=== PATIENT | female | born 1940 | race Caucasian/White ===

== ENCOUNTER 2017-05-17 06:21 | Emergency (ER) | payer OTHER ==
[2017-05-17 06:29] VITALS: BMI 24.0
[2017-05-17] MEDS ORDERED: CATAPRES TAB 0.1 MG PO ONE (06:31)
[2017-05-17] MEDS ORDERED: CATAPRES TAB 0.1 MG ONE (06:31)
--- NOTE | 2017-05-17 06:40 | DR.GENAD ---
HPI - PCP Primary Care Physician: CLINTON - Complaint/Symptoms Chief Complaint Doctors Comments: History as stated. Chief Complaint:: WOKE WITH HEADACHE, N/V, DIZZY, BP ELEVATED. JUST FEEL WEAK. RECENTLY HAD ROOT CANAL. - Source History Provided: Patient, EMS - Mode of Arrival Mode of Arrival: EMS - Timing Onset of Chief Complaint: 05/17/17 PMH - PMH Past Medical History: Yes Past Medical History: Gout, Hypertension, Hypothyroidism Past Surgical History: Yes Surgical History: Hysterectomy - Family History History of Family Medical Conditions: Yes Family Medical History: Diabetes Mellitus, Cancer, [place], Coronary Artery Disease, Hypertension - Social History Does patient currently use any type of tobacco product: No Have you used tobacco products in the last 12 months: No Type of Tobacco Use: None Does any household member use tobacco: No Alcohol Use: None Do you use any recreational Drugs:: No Lives Where: Home - infectious screening Have you traveled outside the country in the last 6 months?: No Isolation: Standard ROS - Review of Systems Constitutional: negative: Diaphoresis Eyes: No Symptoms Reported, Other (pupils asymmetrical right >left) ENTM: No Symptoms Reported Respiratoy: No Symptoms Reported Cardiovascular: No Symptoms Reported Gastrointestinal/Abdominal: No Symptoms Reported Genitourinary: No Symptoms Reported Neurological: Dizziness, Problems Walking Musculoskeletal: Leg (decreased muscle strength) Integumentary: No Symptoms Reported, See HPI Hematologic/Lymphatic: No Symptoms Reported Endocrine: No Symptoms Reported Psychiatric: No Symptoms Reported All Other Systems: Reviewed and Negative PE - Vital Signs Vitals: Temperature 97.5 F Pulse Rate 93 Respiratory Rate 18 Blood Pressure [Left Arm] 137/65 Blood Pressure [Right Arm] 172/81 Blood Pressure 202/91 O2 Sat by Pulse Oximetry 97 - General Limitations: No Limitations General Appearance: Alert, In No Apparent Distress, Lethargic - Head Head Exam: Normal Inspection, Atraumatic - Eyes Eye exam: Normal Appearance, PERRL, EOMI - ENT ENT Exam: Normal Exam External Ear Exam: Normal External Inspection TM/Canal Exam: Bilateral Normal Nose Exam: Normal Nose Exam Mouth Exam: Normal Inspection. negative: Drooling, Trismus Throat Exam: Normal Inspection - Neck Neck Exam: Normal Inspection - Chest Chest Inspection: Normal Inspection, Symmetric Chest Wall Rise - Respiratory Respiratory Exam: Normal Lung Sounds Bilat Respiratory Exam: Bilateral Clear to Auscultation - Cardiovascular Cardiovascular Exam: Regular Rate, Normal Rhythm - Abdominal Exam Abdominal Exam: Normal Inspection, Normal Bowel Sounds Abdominal Tenderness: negative: RUQ, RLQ, LUQ, LLQ, Epigastrium, Suprapubic, Diffuse, Mild, Moderate, Severe, Other - Extremities Extremities Exam: Normal Inspection, Full ROM - Back Back Exam: Normal Inspection - Neurologic Neurological Exam: Alert, Oriented X3, CN II-XII Intact - Psychiatric Psychiatric Exam: Normal Affect, Normal Mood - Skin Skin Exam: Warm, Dry, Intact Course - Consultation Called: 07:20 (Dr Bernstein ER physician accepted in a ER to ER transfer) Call Returned: 07:30 (Dr Mcallister neurosurgeon accepted for evaluation and treatment) ROR - Labs Reviewed Result Diagrams: 05/17/17 06:49 05/17/17 06:49 Laboratory: WBC 5.6 X10^3/uL (3.6-10.0) 05/17/17 06:49 RBC 4.36 X10^6/uL (3.5-5.4) 05/17/17 06:49 Hgb 13.1 g/dL (12.0-16.0) 05/17/17 06:49 Hct 39.4 % (36.0-47.0) 05/17/17 06:49 MCV 90.4 fL (80.0-100.0) 05/17/17 06:49 MCH 30.0 pg (27.0-34.0) 05/17/17 06:49 MCHC 33.2 g/dL (33.0-35.0) 05/17/17 06:49 RDW 15.4 % (11.6-16.5) 05/17/17 06:49 Plt Count 175 X10^3/uL (150.0-450.0) 05/17/17 06:49 MPV 8.5 fL (7.4-11.0) 05/17/17 06:49 Neut % 67.1 % (42.0-75.0) 05/17/17 06:49 Lymph % 17.7 % (21.0-51.0) L 05/17/17 06:49 Holmes % 6.5 % (0.0-13.0) 05/17/17 06:49 Eos % 7.7 % (0.9-2.9) H 05/17/17 06:49 Baso % 1.0 % (0.2-1.0) 05/17/17 06:49 Neut # 3.7 x10^3/uL (2.2-4.8) 05/17/17 06:49 Lymph # 1.0 X10^3/uL (1.3-2.9) L 05/17/17 06:49 Holmes # 0.4 x10^3/uL (0.3-0.8) 05/17/17 06:49 Eos # 0.4 x10^3/uL (0.0-0.2) H 05/17/17 06:49 Baso # 0.1 X10^3/uL (0.0-0.1) 05/17/17 06:49 Absolute Nucleated RBC 0.0 /100WBC 05/17/17 06:49 INR Target Range - 05/17/17 06:49 INR 0.94 (0.8-1.3) 05/17/17 06:49 PTT 23.3 SECONDS (22.9-36.5) 05/17/17 06:49 PTT Comment - 05/17/17 06:49 - XRAY XRAY Interpreted by: Radiologist (CT Brain: There is an acute hemorrhage at the base of the right frontal lobe as well as blood in the right sylvian fissure and around the imp and idagonal cistern. There is moderate periventricular white matter low attenuation as before. The ventricles are prominent is size. There are small lacunar infarcts in the basal ganglia. Impression: Actue subarachnoid hemorrhage suggestive of rupture of right middle or anterior cerebral artery aneursym) - Diagnosis Discharge Problem: Subarachnoid hemorrhage - Discharge Plan Condition: Stable - Follow ups/Referrals Follow ups/Referrals: Shahid Martinez [Primary Care Provider] - 3 days - Instructions
--- NOTE | 2017-05-17 07:08 | CT ---
History: Headache and nausea and vomiting and hypertension Study : Multi conference planner CT head without contrast. Comparison: December 16, 2016 Findings: There is an acute hemorrhage at the base of the right frontal lobe as well as blood in the right sylvian fissure and around the imp and diagonal cistern. There is moderate periventricular wh ite matter low attenuation as before. The ventricles are prominent in size. There are small lacunar infarcts in the basal ganglia. Impression: Acute subarachnoid hemorrhage suggestive of ruptured right middle or anterior cerebral a rtery aneurysm Reported By:
--- NOTE | 2017-05-17 07:09 | RAD ---
History : Weakness and nausea and vomiting Study: Portable AP chest Comparison: December 17, 2016 Findings: There is limited inspiration with subsegmental atelectasis at the lung bases. The heart si ze is normal. The upper lobes are clear. There is no definite pleural effusion. Impression: Minimal subsegmental atelectasis at both lung bases Reported By:
[2017-05-17 07:10] LABS: BASOPHILS # (AUTO) 0.1 X10^3/uL (0.0-0.1); EOSINOPHILS # (AUTO) 0.4 x10^3/uL (0.0-0.2); EOSINOPHILS % (AUTO) 7.7 % (0.9-2.9); HEMATOCRIT 39.4 % (36.0-47.0); HEMOGLOBIN 13.1 g/dL (12.0-16.0); LYMPHOCYTES % (AUTO) 17.7 % (21.0-51.0); MEAN CORPUSCULAR HGB CONC 33.2 g/dL (33.0-35.0); MEAN CORPUSCULAR VOLUME 90.4 fL (80.0-100.0); MEAN PLATELET VOLUME 8.5 fL (7.4-11.0); MONOCYTES # (AUTO) 0.4 x10^3/uL (0.3-0.8); MONOCYTES % (AUTO) 6.5 % (0.0-13.0); NEUTROPHILS # (AUTO) 3.7 x10^3/uL (2.2-4.8); NEUTROPHILS % (AUTO) 67.1 % (42.0-75.0); PLATELET COUNT 175 X10^3/uL (150.0-450.0); RED BLOOD COUNT 4.36 X10^6/uL (3.5-5.4); RED CELL DISTRIBUTION WIDTH 15.4 % (11.6-16.5); WHITE BLOOD COUNT 5.6 X10^3/uL (3.6-10.0)
[2017-05-17 07:33] LABS: BLOOD UREA NITROGEN 18 mg/dL (7-18); CALCIUM 8.9 mg/dL (8.5-10.1); CARBON DIOXIDE 28.8 mmol/L (21-32); CHLORIDE 107 mmol/L (98-107); COR NA(FOR HYPERGLY) 145 mmol/L (136-145); GLUCOSE 123 mg/dL (65-99); SODIUM 144 mmol/L (136-145); TROPONIN I < 0.02 ng/mL (0-1.5); eGFR BLACK RACES > 60 (>60); eGFR NON BLACK RACES 51 (>60)
[2017-05-17 07:51] LABS: ALANINE AMINOTRANSFERASE 43 Units/L (12-78); ALBUMIN 3.6 g/dL (3.4-5.0); ALKALINE PHOSPHATASE 92 Units/L (46-116); ASPARTATE AMINO TRANSFERASE 41 Units/L (15-37); CKMB % 3.1 % (<4); CREATINE KINASE 465 Units/L (26-192); MAGNESIUM 1.5 mg/dL (1.7-2.9)
[2017-05-17 07:53] LABS: CREATINE KINASE MB 14.5 ng/mL (0-4.0)
[2017-05-17 07:55] VITALS: BP 138/68
[2017-05-17 08:00] LABS: BILIRUBIN,URINE NEGATIVE (NEGATIVE); BLOOD/HEMOGLOBIN,URINE 1+ (NEGATIVE); GLUCOSE, URINE NEGATIVE (NEGATIVE); KETONES,URINE NEGATIVE (NEGATIVE); LEUKOCYTE ESTERASE ,URINE 3+ (NEGATIVE); NITRITES,URINE NEGATIVE (NEGATIVE); PROTEIN,URINE 2+ (NEGATIVE); UROBILINOGEN,URINE NORMAL (NORMAL)
[2017-05-17 08:07] LABS: APPEARANCE,URINE CLEAR (CLEAR); BACTERIA,URINE TRACE /HPF (NEGATIVE); COLOR,URINE YELLOW (YELLOW); RBC,URINE 0-3 /HPF (NEGATIVE); SQUAMOUS EPITHELIAL CELL,UR NEGATIVE /HPF (NEGATIVE)
== END 2017-05-17 08:19 | disposition short-term general hospital (02) ==
LOC: ER 06:21
PROC: 0T9B70Z Drainage of Bladder with Drainage Device, Via Natural or Artificial Opening (ICD-10-PCS; principal; 2017-05-17)
DX: I60.8 Other nontraumatic subarachnoid hemorrhage (principal)
CPT/HCPCS: 36415; 51702; 70450; 71010; 80053; 81001; 82550; 82553; 83735; 84484; 85025; 85610; 85730; 87086; 93005; 96365; 99284; 99285; A4222

== ENCOUNTER 2017-06-22 15:22 | Inpatient (IN) | payer OTHER ==
[2017-06-22] MEDS: LEVAQUIN PREMIX IV 500 MG 500 MG/100 ML BAG IV SCH (17:04)
[2017-06-22] MEDS: NS 1000 ML 1,000 ML IV SCH (17:04)
[2017-06-22 17:22] LABS: BASOPHILS # (AUTO) 0.1 X10^3/uL (0.0-0.1); BASOPHILS % (AUTO) 0.7 % (0.2-1.0); EOSINOPHILS % (AUTO) 0.1 % (0.9-2.9); HEMATOCRIT 33.4 % (36.0-47.0); HEMOGLOBIN 10.7 g/dL (12.0-16.0); LYMPHOCYTES # (AUTO) 1.1 X10^3/uL (1.3-2.9); LYMPHOCYTES % (AUTO) 5.4 % (21.0-51.0); MEAN CORPUSCULAR HEMOGLOBIN 27.7 pg (27.0-34.0); MEAN CORPUSCULAR HGB CONC 31.9 g/dL (33.0-35.0); MEAN CORPUSCULAR VOLUME 86.6 fL (80.0-100.0); MEAN PLATELET VOLUME 8.1 fL (7.4-11.0); MONOCYTES # (AUTO) 1.7 x10^3/uL (0.3-0.8); MONOCYTES % (AUTO) 8.2 % (0.0-13.0); NEUTROPHILS # (AUTO) 17.8 x10^3/uL (2.2-4.8); NEUTROPHILS % (AUTO) 85.6 % (42.0-75.0); PLATELET COUNT 341 X10^3/uL (150.0-450.0); RED BLOOD COUNT 3.86 X10^6/uL (3.5-5.4); RED CELL DISTRIBUTION WIDTH 17.6 % (11.6-16.5)
[2017-06-22 17:34] LABS: WHITE BLOOD COUNT 20.8 X10^3/uL (3.6-10.0)
[2017-06-22 17:43] LABS: ALBUMIN 2.9 g/dL (3.4-5.0); CALCIUM 10.1 mg/dL (8.5-10.1); CARBON DIOXIDE 27.4 mmol/L (21-32); CREATININE 1.84 mg/dL (0.55-1.02); TOTAL PROTEIN 7.8 g/dL (6.4-8.2)
[2017-06-22 17:58] VITALS: BMI 20.9
--- NOTE | 2017-06-22 18:58 | CT ---
HISTORY: AMS Study: Noncontrast CT scan the brain Comparison: May 17, 2017 Technique: non contrasted CT images of the brain are reviewed in axial, coronal and sagittal planes. Dose reduction techniques utilized automatic exposure control. Findings: Since prior studies, patient has undergone coil embolization in the suprasellar region on the right. Subarachnoid bleeding has resolved. There is ventriculomegaly with periventricular areas of decreased attenuation density compatible with microangiopathic change. The ventricles appear to be slightly mo re prominent than on the prior study. A followup CT scan should be considered to evaluate for develop ment of hydrocephalus. A small ischemic infarct is present in the right frontal region near the conve xity. No evidence of repeat hemorrhage is seen. There is no shift of midline structures. The brainste m and cerebellum unremarkable. The bony calvarium is intact. IMPRESSION: Interval coil embolization in the right suprasellar region. Subarachnoid bleeding has resolved. Ventriculomegaly with periventricular areas of decreased attenuation density compatible with microang iopathic change. The ventricles appear to be slightly more prominent than on the prior study. A follo wup CT scan should be considered to evaluate for development of hydrocephalus. Small focus of ischemic infarction involving the periventricular white matter of the right frontal lo be near the convexity. This is best seen on series 4, image 26. Reported By:
[2017-06-23 05:47] LABS: ALBUMIN 2.6 g/dL (3.4-5.0); CALCIUM 9.6 mg/dL (8.5-10.1); CARBON DIOXIDE 25.2 mmol/L (21-32); COR CA(FOR HYPOALB) 10.7 mg/dL (8.5-10.1); CREATININE 1.7 mg/dL (0.55-1.02); TOTAL PROTEIN 7.4 g/dL (6.4-8.2)
[2017-06-23 05:58] LABS: BASOPHILS % (AUTO) 0.2 % (0.2-1.0); HEMATOCRIT 31.5 % (36.0-47.0); LYMPHOCYTES # (AUTO) 0.8 X10^3/uL (1.3-2.9); LYMPHOCYTES % (AUTO) 4.3 % (21.0-51.0); MEAN CORPUSCULAR HEMOGLOBIN 27.5 pg (27.0-34.0); MEAN CORPUSCULAR HGB CONC 31.8 g/dL (33.0-35.0); MEAN CORPUSCULAR VOLUME 86.5 fL (80.0-100.0); MEAN PLATELET VOLUME 8.2 fL (7.4-11.0); MONOCYTES # (AUTO) 1.2 x10^3/uL (0.3-0.8); MONOCYTES % (AUTO) 6.8 % (0.0-13.0); NEUTROPHILS # (AUTO) 15.8 x10^3/uL (2.2-4.8); NEUTROPHILS % (AUTO) 88.7 % (42.0-75.0); PLATELET COUNT 324 X10^3/uL (150.0-450.0); RED BLOOD COUNT 3.64 X10^6/uL (3.5-5.4); RED CELL DISTRIBUTION WIDTH 17.6 % (11.6-16.5); WHITE BLOOD COUNT 17.8 X10^3/uL (3.6-10.0)
[2017-06-23] MEDS: NS 1000 ML 1,000 ML IV SCH (06:29)
[2017-06-23] MEDS: LEVAQUIN PREMIX IV 500 MG 500 MG/100 ML BAG IV SCH (08:52)
[2017-06-23] MEDS: COLACE CAP 100 MG PO SCH ×2 (08:55→20:31)
[2017-06-23] MEDS: MILK OF MAGNESIA PO SCH ×2 (08:55→20:32)
--- NOTE | 2017-06-23 10:48 | DR.H&P ---
H&P - History & Physical for Day of: H&P Date: 06/22/17 - Chief Complaint Chief Complaint: ALTERED MENTAL STATUS, UTI, TACHYCARDIA - Allergies Allergies/Adverse Reactions: Allergies Allergy/AdvReac Type Severity Reaction Status Date / Time No Known Drug Allergies Allergy Unverified 05/17/17 07:39 - History of Present Illness History of Present Illness: IS A 77 YEAR OLD PATIENT OF OURS WHO IS A RESIDENT OF [facility]. SHE WAS A DIRECT ADMISSION FROM THE RETIREMENT. STAFF FROM RETIREMENT REPORTED THAT PATIENT HAS NOT RESPONDED VERBALLY IN 2 DAYS AND IS NOT EATING WELL. THEY REPORT THAT HER HEARTRATE HAS BEEN IN THE 120S THROUGHOUT THE DAY. PATIENT HAS A RECENT HISTORY OF SUBARACHNOID BLEED FOR WHICH SHE WAS TREATED FOR IN [place]. 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 CBC, CMP, AND URINALYSIS WERE OBTAINED ON AT THE RETIREMENT AND REPORTED WBC 12.4, HGB 10.5, HCT 32.6. BUN 35, CREATININE 1.38, GLUCOSE 142, CALCIUM 10.4, AST 40, ALBUMIN 3.0. URINALYSIS REPORTED URINE EBC 20-25, RBC 3-5, BACTERIA 1+, LEUKOCYTES 2+, PROTEIN 2+. URINE CULTURE GREW OUT KLEBSIELLA PNEUMONIAE AND ENTEROCOCCUS FAECALIS. BOTH SENSITIVE TO LEVAQUIN. WE ADMITTED PATIENT FOR FURTHER TREATMENT AND EVALUATION. WE PLAN TO OBTAIN CBC, CMP, AND BRAIN CT ON ADMISSION. WE WILL START PATIENT ON NS AT 30ML/HR, LEVAQUIN 500MG IV DAILY. WE ALSO PLAN TO RECHECK AM LABS AND FOLLOW UP WITH PATIENT IN AM. - Past Medical History Past Medical History: Coronary Artery Disease, Dyslipidemia, GERD, Gout, Hypertension, Hypothyroidism - Past Surgical History Surgical History: Hysterectomy - Family History Family Medical History: Diabetes Mellitus, Cancer, [place], Coronary Artery Disease, Hypertension - Social History Alcohol Use: None Drug Use: None - Medications Home Medications: Acetaminophen [TYLENOL SUPPOSITORY 650 MG *] 650 mg RECTAL Q4H PRN 06/22/17 [ History Confirmed 06/22/17] Aspirin [ASPIRIN 325 MG *] 325 mg PO DAILY 06/22/17 [History Confirmed 06/22/17] Ciprofloxacin HCl [CIPRO 500 MG TAB *] 500 mg PO BID 06/22/17 [History Confirmed 06/22/17] Mirtazapine [REMERON 15 MG *] 15 mg PO DAILY 06/22/17 [History Confirmed ] Nystatin Susp [NYSTATIN ORAL SUSP *] 5 ml PO QID 06/22/17 [History Confirmed 09/26] - Review of Systems Constitutional: See HPI, Weakness Eyes: No Symptoms Reported ENT: No Symptoms Reported Respiratory: No Symptoms Reported Cardiovascular: See HPI (TACHYCARDIA), Other Gastrointestinal: No Symptoms Reported Genitourinary: No Symptoms Reported Musculoskeletal: No Symptoms Reported Skin: No Symptoms Reported Neurological: See HPI, Weakness, Change in Speech - Physical Exam Vital Signs: Temperature 97.5 F Pulse Rate [Left Brachial] 130 Respiratory Rate 22 Blood Pressure [Left Arm] 114/58 Blood Pressure [Right Arm] 172/81 Blood Pressure 138/68 O2 Sat by Pulse Oximetry 100 Oriented: Unable to test Eyes: Normal Ear: Normal Nose: Normal Throat: Normal Respiratory: Clear Throughout Cardiovascular: Tachycardia : Normal Auscultation: Bowel Sounds: Normal Palpation: Normal Tenderness: Normal Skin: Normal Musculoskeletal: Normal, Right, Arm, Leg (PARALYSIS ) Psychiatric: Normal Mood Description: Calm Affect: Normal Speech Pattern: Unclear - Assessment/Plan (1) UTI (urinary tract infection) Qualifiers: Urinary tract infection type: site unspecified Hematuria presence: without hematuria Qualified Code(s): N39.0 - Urinary tract infection, site not specified Status: Acute Plan: LEVAQUIN 500MG IV DAILY, CONTINUE TO MONITOR (2) Altered mental status Qualifiers: Altered mental status type: disorientation Qualified Code(s): R41.0 - Disorientation, unspecified Status: Acute Plan: OBTAIN BRAIN CT, CONTINUE TO MONITOR (3) Tachycardia Status: Acute Plan: OBTAIN EKG, TELEMETRY, CONTINUE TO MONITOR
[2017-06-24] MEDS: NS 1000 ML 1,000 ML IV SCH ×3 (03:19→07:54)
[2017-06-24 06:18] LABS: BASOPHILS % (AUTO) 0.3 % (0.2-1.0); EOSINOPHILS % (AUTO) 0.2 % (0.9-2.9); HEMATOCRIT 29.7 % (36.0-47.0); HEMOGLOBIN 9.6 g/dL (12.0-16.0); LYMPHOCYTES # (AUTO) 0.7 X10^3/uL (1.3-2.9); MEAN CORPUSCULAR HEMOGLOBIN 27.7 pg (27.0-34.0); MEAN CORPUSCULAR HGB CONC 32.3 g/dL (33.0-35.0); MEAN CORPUSCULAR VOLUME 85.9 fL (80.0-100.0); MEAN PLATELET VOLUME 8.3 fL (7.4-11.0); MONOCYTES # (AUTO) 0.7 x10^3/uL (0.3-0.8); NEUTROPHILS # (AUTO) 10.3 x10^3/uL (2.2-4.8); NEUTROPHILS % (AUTO) 87.5 % (42.0-75.0); PLATELET COUNT 283 X10^3/uL (150.0-450.0); RED BLOOD COUNT 3.46 X10^6/uL (3.5-5.4); WHITE BLOOD COUNT 11.8 X10^3/uL (3.6-10.0)
[2017-06-24 07:09] LABS: ALBUMIN 2.6 g/dL (3.4-5.0); CALCIUM 9.2 mg/dL (8.5-10.1); CARBON DIOXIDE 25.8 mmol/L (21-32); COR CA(FOR HYPOALB) 10.3 mg/dL (8.5-10.1); CREATININE 1.4 mg/dL (0.55-1.02); TOTAL PROTEIN 7.1 g/dL (6.4-8.2)
[2017-06-24] MEDS: LEVAQUIN PREMIX IV 500 MG 500 MG/100 ML BAG IV SCH (09:12)
[2017-06-24 10:02] LABS: ALANINE AMINOTRANSFERASE 708 Units/L (12-78); ALKALINE PHOSPHATASE 220 Units/L (46-116); ASPARTATE AMINO TRANSFERASE 821 Units/L (15-37); CREATINE KINASE 28 Units/L (26-192)
[2017-06-24] MEDS ORDERED: TYLENOL SUPP 650 MG RECTAL PRN (10:11)
[2017-06-24] MEDS ORDERED: ALLOPURINOL 150 MG PO SCH (10:15)
[2017-06-24] MEDS ORDERED: PATIENT'S HOME MEDICATION (Cholecalciferol (Vitamin D3) [Vitamin D3] 5,000 UNIT) PO SCH (10:15)
[2017-06-24] MEDS ORDERED: PATIENT'S HOME MEDICATION (Cyanocobalamin (Vitamin B-12) [Vitamin B-12] 1,000 MCG) PO SCH (10:15)
[2017-06-24] MEDS: MAXZIDE 75/50 MG PO SCH (10:35)
[2017-06-24] MEDS: SYNTHROID 50 mcg TAB PO SCH (10:35)
[2017-06-24] MEDS: ZYLOPRIM PO SCH (10:35)
[2017-06-24] MEDS: REMERON PO SCH (10:35)
[2017-06-24] MEDS: ASPIRIN PO SCH (10:36)
--- NOTE | 2017-06-24 11:29 | PCM.PROG ---
Progress Note - Progress Note for Day of Date: 06/23/17 - Subjective Subjective: IS ALERT, LYING IN BED ON MORNING ROUNDS. PATIENT'S DAUGHTER AT BEDSIDE. PATIENT IS ORIENTED TO PERSON, BUT DOESN'T RECALL TIME OR PLACE. PATIENT DOES NOT VERBALIZED COMPLAINTS ON MORNING ROUNDS. SHE IS NOTED ON TELEMETRY, WITH MONITOR REPORTING HEARTRATE OF 133 BEATS/MIN. VITALS THIS AM ARE 97.5-137-24-99%-132/60. ABNORMAL LAB VALUES THIS MORNING INCLUDE: WBC 17.8, HGB 10.0, HCT 31.5, SODIUM 146, CHLORIDE 108, BUN 88, CREATININE 1.70, GLUCOSE 142, AST 89, ALT 91, ALK PHOS 130, ALBUMIN 2.6. A BRAIN CT WAS OBTAINED ON ADMISSION AND REPORTS THE FOLLOWING: Interval coil embolization in the right suprasellar region. Subarachnoid bleeding has resolved. Ventriculomegaly with periventricular areas of decreased attenuation density compatible with microangiopathic changed. The ventricles appear to be slightly more prominent than on the prior study. A follow up CT scan should be considered to evaluate for development of hydrocephalus. Small focus of ischemic infarction involving the periventricular white matter of the right frontal lobe near the convexity. WE WILL CONTINUE TO TREAT URINARY TRACT INFECTION WITH LEVAQUIN 500MG IV DAILY. WE WILL OBTAIN AN ECHO TODAY AND A SWALLOWING EVALUATION. WE PLAN TO RECHECK AM LABS AND BLOOD CULTURES. - Past Medical Family Social History Past Med/Fam/Surg Hx: No changes since H&P Allergies: Allergies No Known Drug Allergies Allergy (Unverified 05/17/17 07:39) - Review of Systems ROS: No change since H&P - Vital Signs and I&O's Vital Signs: Temperature 98.5 F Pulse Rate [Left Brachial] 130 Respiratory Rate 24 Blood Pressure [Left Arm] 129/64 Blood Pressure [Right Arm] 172/81 Blood Pressure 138/68 O2 Sat by Pulse Oximetry 99 Intake and Output: Intake & Output 06/21/17 06/22/17 06/23/17 06/24/17 11:59 11:59 11:59 11:59 Intake Total 385 883 Balance 385 883 - Physical Exam Oriented: Person Eyes: Normal Ear: Normal Nose: Normal Throat: Normal Respiratory: Normal Cardiovascular: Tachycardia : Normal Auscultation: Bowel Sounds: Normal Palpation: Normal Tenderness: Normal Skin: Normal Musculoskeletal: Normal, Right, Arm, Leg (PARALYSIS ) Psychiatric: Normal Mood Description: Calm Affect: Normal Speech Pattern: Clear, Appropriate - Laboratory and Diagnostics Result Diagrams: 06/24/17 05:55 06/24/17 05:55 Labs: Laboratory WBC 11.8 X10^3/uL (3.6-10.0) H 06/24/17 05:55 RBC 3.46 X10^6/uL (3.5-5.4) L 06/24/17 05:55 Hgb 9.6 g/dL (12.0-16.0) L 06/24/17 05:55 Hct 29.7 % (36.0-47.0) L 06/24/17 05:55 MCV 85.9 fL (80.0-100.0) 06/24/17 05:55 MCH 27.7 pg (27.0-34.0) 06/24/17 05:55 MCHC 32.3 g/dL (33.0-35.0) L 06/24/17 05:55 RDW 18.0 % (11.6-16.5) H 06/24/17 05:55 Plt Count 283 X10^3/uL (150.0-450.0) 06/24/17 05:55 MPV 8.3 fL (7.4-11.0) 06/24/17 05:55 Neut % 87.5 % (42.0-75.0) H 06/24/17 05:55 Lymph % 6.0 % (21.0-51.0) L 06/24/17 05:55 Sequoyah % 6.0 % (0.0-13.0) 06/24/17 05:55 Eos % 0.2 % (0.9-2.9) L 06/24/17 05:55 Baso % 0.3 % (0.2-1.0) 06/24/17 05:55 Neut # 10.3 x10^3/uL (2.2-4.8) H 06/24/17 05:55 Lymph # 0.7 X10^3/uL (1.3-2.9) L 06/24/17 05:55 Sequoyah # 0.7 x10^3/uL (0.3-0.8) 06/24/17 05:55 Eos # 0.0 x10^3/uL (0.0-0.2) 06/24/17 05:55 Baso # 0.0 X10^3/uL (0.0-0.1) 06/24/17 05:55 Absolute Nucleated RBC 0.4 /100WBC 06/24/17 05:55 Sodium 151 mmol/L (136-145) H* 06/24/17 05:55 Corrected Sodium 152 mmol/L (136-145) H 06/24/17 05:55 Potassium 3.8 mmol/L (3.5-5.1) 06/24/17 05:55 Chloride 113 mmol/L (98-107) H 06/24/17 05:55 Carbon Dioxide 25.8 mmol/L (21-32) 06/24/17 05:55 BUN 84 mg/dL (7-18) H 06/24/17 05:55 Creatinine 1.40 mg/dL (0.55-1.02) H 06/24/17 05:55 Est GFR (MDRD) Af Amer 47 (>60) L 06/24/17 05:55 Est GFR (MDRD) Non-Af 39 (>60) L 06/24/17 05:55 Glucose 122 mg/dL (65-99) H 06/24/17 05:55 Calcium 9.2 mg/dL (8.5-10.1) 06/24/17 05:55 Corrected Calcium 10.3 mg/dL (8.5-10.1) H 06/24/17 05:55 Total Bilirubin 0.40 mg/dL (0.2-1.0) 06/24/17 05:55 AST 821 Units/L (15-37) H 06/24/17 09:40 ALT 708 Units/L (12-78) H 06/24/17 09:40 Alkaline Phosphatase 220 Units/L (46-116) H 06/24/17 09:40 Creatine Kinase 28 Units/L (26-192) 06/24/17 09:40 Total Protein 7.1 g/dL (6.4-8.2) 06/24/17 05:55 Albumin 2.6 g/dL (3.4-5.0) L 06/24/17 05:55 Globulin 4.5 g/dL (2.5-4.5) 06/24/17 05:55 Albumin/Globulin Ratio 0.6 Ratio (1.1-2.1) L 06/24/17 05:55 - Plan (1) UTI (urinary tract infection) Status: Acute Qualifiers: Urinary tract infection type: site unspecified Hematuria presence: without hematuria Qualified Code(s): N39.0 - Urinary tract infection, site not specified Plan: LEVAQUIN 500MG IV DAILY, CONTINUE TO MONITOR (2) Altered mental status Status: Acute Qualifiers: Altered mental status type: disorientation Qualified Code(s): R41.0 - Disorientation, unspecified Plan: OBTAIN BRAIN CT, CONTINUE TO MONITOR (3) Tachycardia Status: Acute Plan: OBTAIN EKG, TELEMETRY, CONTINUE TO MONITOR (4) Swallowing difficulty Status: Acute Qualifiers: Dysphagia type: unspecified Qualified Code(s): R13.10 - Dysphagia, unspecified Plan: SWALLOWING STUDY, GI CONSULT, SUCTION NEEDED, CONTINUE TO MONITOR
--- NOTE | 2017-06-24 11:51 | PCM.PROG ---
Progress Note - Progress Note for Day of Date: 06/24/17 - Subjective Subjective: IS ALERT, LYING IN BED ON MORNING ROUNDS. PATIENT'S DAUGHTER AT BEDSIDE. PATIENT APPEARS MORE ALERT AND ORIENTED THAN YESTERDAY. TODAY, SHE IS AWARE OF LOCATION. PATIENT CONTINUES WITH DIFFICULTY SWALLOWING. SHE IS NOTED ON TELEMETRY, WITH MONITOR REPORTING HEARTRATE OF 127 BEATS/MIN. VITALS THIS AM ARE 98.6-126-25-99%-135/65. ABNORMAL LAB VALUES THIS MORNING INCLUDE: WBC 11.8, RBC 3.46, HGB 9.6, HCT 29.7, SODIUM 151, CHLORIDE 113, BUN 84 , CREATININE 1.40, GLUCOSE 122, AST ICREASED FROM 8- TO 1004, ALT INCREASED FROM 91 TO 749, ALK PHOS INCREASED FROM 130 TO 219, ALBUMIN 2.6. WE WILL CONSULT WITH DUE TO DIFFULTY SWALLOWING. WE PLAN TO RECHECK AM LABS AND BLOOD CULTURES. - Past Medical Family Social History Past Med/Fam/Surg Hx: No changes since H&P Allergies: Allergies No Known Drug Allergies Allergy (Unverified 05/17/17 07:39) - Review of Systems ROS: No change since H&P - Vital Signs and I&O's Vital Signs: Temperature 98.5 F Pulse Rate [Left Brachial] 130 Respiratory Rate 24 Blood Pressure [Left Arm] 129/64 Blood Pressure [Right Arm] 172/81 Blood Pressure 138/68 O2 Sat by Pulse Oximetry 99 Intake and Output: Intake & Output 06/21/17 06/22/17 06/23/17 06/24/17 11:59 11:59 11:59 11:59 Intake Total 385 883 Balance 385 883 - Physical Exam Oriented: Person Eyes: Normal Ear: Normal Nose: Normal Throat: Normal Respiratory: Normal Cardiovascular: Tachycardia : Normal Auscultation: Bowel Sounds: Normal Palpation: Normal Tenderness: Normal Skin: Normal Musculoskeletal: Normal, Right, Arm, Leg (PARALYSIS ) Psychiatric: Normal Mood Description: Calm Affect: Normal Speech Pattern: Clear, Appropriate - Laboratory and Diagnostics Result Diagrams: 06/24/17 05:55 06/24/17 05:55 Labs: Laboratory WBC 11.8 X10^3/uL (3.6-10.0) H 06/24/17 05:55 RBC 3.46 X10^6/uL (3.5-5.4) L 06/24/17 05:55 Hgb 9.6 g/dL (12.0-16.0) L 06/24/17 05:55 Hct 29.7 % (36.0-47.0) L 06/24/17 05:55 MCV 85.9 fL (80.0-100.0) 06/24/17 05:55 MCH 27.7 pg (27.0-34.0) 06/24/17 05:55 MCHC 32.3 g/dL (33.0-35.0) L 06/24/17 05:55 RDW 18.0 % (11.6-16.5) H 06/24/17 05:55 Plt Count 283 X10^3/uL (150.0-450.0) 06/24/17 05:55 MPV 8.3 fL (7.4-11.0) 06/24/17 05:55 Neut % 87.5 % (42.0-75.0) H 06/24/17 05:55 Lymph % 6.0 % (21.0-51.0) L 06/24/17 05:55 Emery % 6.0 % (0.0-13.0) 06/24/17 05:55 Eos % 0.2 % (0.9-2.9) L 06/24/17 05:55 Baso % 0.3 % (0.2-1.0) 06/24/17 05:55 Neut # 10.3 x10^3/uL (2.2-4.8) H 06/24/17 05:55 Lymph # 0.7 X10^3/uL (1.3-2.9) L 06/24/17 05:55 Emery # 0.7 x10^3/uL (0.3-0.8) 06/24/17 05:55 Eos # 0.0 x10^3/uL (0.0-0.2) 06/24/17 05:55 Baso # 0.0 X10^3/uL (0.0-0.1) 06/24/17 05:55 Absolute Nucleated RBC 0.4 /100WBC 06/24/17 05:55 Sodium 151 mmol/L (136-145) H* 06/24/17 05:55 Corrected Sodium 152 mmol/L (136-145) H 06/24/17 05:55 Potassium 3.8 mmol/L (3.5-5.1) 06/24/17 05:55 Chloride 113 mmol/L (98-107) H 06/24/17 05:55 Carbon Dioxide 25.8 mmol/L (21-32) 06/24/17 05:55 BUN 84 mg/dL (7-18) H 06/24/17 05:55 Creatinine 1.40 mg/dL (0.55-1.02) H 06/24/17 05:55 Est GFR (MDRD) Af Amer 47 (>60) L 06/24/17 05:55 Est GFR (MDRD) Non-Af 39 (>60) L 06/24/17 05:55 Glucose 122 mg/dL (65-99) H 06/24/17 05:55 Calcium 9.2 mg/dL (8.5-10.1) 06/24/17 05:55 Corrected Calcium 10.3 mg/dL (8.5-10.1) H 06/24/17 05:55 Total Bilirubin 0.40 mg/dL (0.2-1.0) 06/24/17 05:55 AST 821 Units/L (15-37) H 06/24/17 09:40 ALT 708 Units/L (12-78) H 06/24/17 09:40 Alkaline Phosphatase 220 Units/L (46-116) H 06/24/17 09:40 Creatine Kinase 28 Units/L (26-192) 06/24/17 09:40 Total Protein 7.1 g/dL (6.4-8.2) 06/24/17 05:55 Albumin 2.6 g/dL (3.4-5.0) L 06/24/17 05:55 Globulin 4.5 g/dL (2.5-4.5) 06/24/17 05:55 Albumin/Globulin Ratio 0.6 Ratio (1.1-2.1) L 06/24/17 05:55 - Plan (1) UTI (urinary tract infection) Status: Acute Qualifiers: Urinary tract infection type: site unspecified Hematuria presence: without hematuria Qualified Code(s): N39.0 - Urinary tract infection, site not specified Plan: LEVAQUIN 500MG IV DAILY, CONTINUE TO MONITOR (2) Altered mental status Status: Acute Qualifiers: Altered mental status type: disorientation Qualified Code(s): R41.0 - Disorientation, unspecified Plan: OBTAIN BRAIN CT, CONTINUE TO MONITOR (3) Tachycardia Status: Acute Plan: OBTAIN EKG, TELEMETRY, CONTINUE TO MONITOR (4) Swallowing difficulty Status: Acute Qualifiers: Dysphagia type: unspecified Qualified Code(s): R13.10 - Dysphagia, unspecified Plan: SWALLOWING STUDY, GI CONSULT, SUCTION NEEDED, CONTINUE TO MONITOR
[2017-06-24] MEDS ORDERED: PATIENT'S HOME MEDICATION (Simvastatin [Simvastatin] 40 MG) PO SCH (21:00)
[2017-06-24] MEDS: ZOCOR TAB 40 MG PO SCH (21:22)
[2017-06-24] MEDS: MILK OF MAGNESIA PO SCH (21:22)
[2017-06-24] MEDS: COLACE CAP 100 MG PO SCH (21:22)
[2017-06-24] MEDS: SINGULAIR TAB 10 MG PO SCH (21:22)
[2017-06-25] MEDS: NS 1000 ML 1,000 ML IV SCH ×2 (03:16→10:50)
[2017-06-25 06:19] LABS: BASOPHILS % (AUTO) 0.3 % (0.2-1.0); EOSINOPHILS # (AUTO) 0.2 x10^3/uL (0.0-0.2); EOSINOPHILS % (AUTO) 1.5 % (0.9-2.9); HEMATOCRIT 29.3 % (36.0-47.0); HEMOGLOBIN 9.3 g/dL (12.0-16.0); LYMPHOCYTES # (AUTO) 0.8 X10^3/uL (1.3-2.9); LYMPHOCYTES % (AUTO) 6.3 % (21.0-51.0); MEAN CORPUSCULAR HEMOGLOBIN 27.6 pg (27.0-34.0); MEAN CORPUSCULAR HGB CONC 31.8 g/dL (33.0-35.0); MEAN CORPUSCULAR VOLUME 86.7 fL (80.0-100.0); MEAN PLATELET VOLUME 8.5 fL (7.4-11.0); MONOCYTES # (AUTO) 0.9 x10^3/uL (0.3-0.8); NEUTROPHILS # (AUTO) 10.4 x10^3/uL (2.2-4.8); NEUTROPHILS % (AUTO) 84.9 % (42.0-75.0); PLATELET COUNT 268 X10^3/uL (150.0-450.0); RED BLOOD COUNT 3.37 X10^6/uL (3.5-5.4); RED CELL DISTRIBUTION WIDTH 17.6 % (11.6-16.5); WHITE BLOOD COUNT 12.2 X10^3/uL (3.6-10.0)
[2017-06-25 06:23] LABS: ALANINE AMINOTRANSFERASE 445 Units/L (12-78); ALBUMIN 2.6 g/dL (3.4-5.0); ALKALINE PHOSPHATASE 171 Units/L (46-116); ASPARTATE AMINO TRANSFERASE 266 Units/L (15-37); BLOOD UREA NITROGEN 63 mg/dL (7-18); CALCIUM 9.4 mg/dL (8.5-10.1); CARBON DIOXIDE 24.5 mmol/L (21-32); CHLORIDE 114 mmol/L (98-107); COR CA(FOR HYPOALB) 10.5 mg/dL (8.5-10.1); COR NA(FOR HYPERGLY) 151 mmol/L (136-145); CREATININE 1.08 mg/dL (0.55-1.02); TOTAL PROTEIN 6.5 g/dL (6.4-8.2); eGFR BLACK RACES > 60 (>60); eGFR NON BLACK RACES 52 (>60)
[2017-06-25 06:25] LABS: SODIUM 150 mmol/L (136-145)
[2017-06-25] MEDS: REMERON PO SCH (08:33)
[2017-06-25] MEDS: LEVAQUIN PREMIX IV 500 MG 500 MG/100 ML BAG IV SCH (08:33)
[2017-06-25] MEDS: ASPIRIN PO SCH (08:33)
[2017-06-25] MEDS: VITAMIN B-12 PO SCH (08:34)
[2017-06-25] MEDS: SYNTHROID 50 mcg TAB PO SCH (08:34)
[2017-06-25] MEDS: ZYLOPRIM PO SCH (08:34)
[2017-06-25] MEDS: MAXZIDE 75/50 MG PO SCH (08:34)
[2017-06-25] MEDS: VITAMIN D3 PO SCH (09:00)
[2017-06-25] MEDS ORDERED: PHARMACY CONSULT - TPN XX SCH (10:00)
[2017-06-25] MEDS ORDERED: D5W 1000 ML IV 1,000 ML IV SCH (10:00)
[2017-06-25] MEDS: D5W 1000 ML IV 1,000 ML IV SCH ×2 (10:30→20:13)
[2017-06-25] MEDS: PROCALAMINE 3 % 1,000 ML IV SCH (10:32)
[2017-06-25] MEDS: ALBUMIN HUMAN 25%- 100ML 100 ML IV SCH (10:36)
[2017-06-25] MEDS ORDERED: K-LYTE EFFERVESCENT PO PRN (10:59)
[2017-06-25] MEDS ORDERED: POTASSIUM CHLORIDE LIQ 20 MEQ UDC PO PRN (10:59)
[2017-06-25] MEDS: MILK OF MAGNESIA PO SCH (20:13)
[2017-06-25] MEDS: COLACE CAP 100 MG PO SCH (20:14)
[2017-06-25] MEDS: ZOCOR TAB 40 MG PO SCH (20:14)
[2017-06-25] MEDS: SINGULAIR TAB 10 MG PO SCH (20:14)
[2017-06-25] MEDS: K-DUR TAB 20 MEQ PO PRN (20:14)
--- NOTE | 2017-06-25 21:14 | PCM.PROG ---
Progress Note - Progress Note for Day of Date: 06/25/17 - Subjective Subjective: WAS ADMITTED FOR UROSEPSIS AND LETHARGY. SHE IS ALERT, SITTING IN HIGH FOWLERS POSITION IN BED ON MORNING ROUNDS. PATIENT'S DAUGHTER AT BEDSIDE. KEVINUGHER REPORTS THAT PATIENT HAS HAD SHAKING/TREMOR TO RIGHT ARM SINCE YESTERDAY. PATIENT'S DAUGHTER ALSO REPORTS THAT PATIENT HAS BEEN ABLE TO TAKE IN MORE FOOD SINCE THE PREVIOUS DAYS, BUT CONTINUES WITH SOME DIFFICULTY SWALLOWING. SHE IS NOTED ON TELEMETRY, WITH MONITOR REPORTING HEARTRATE OF 122 BEATS/MIN. VITALS THIS AM ARE 98.0-025-81-100%-141/64. LABS WERE OBTAINED. ABNORMAL LAB VALUES THIS MORNING INCLUDE: WBC INCREASED FROM 11.8 TO 12.2, RBC 3.37, HGB 9.3, HCT 29.3, SODIUM 150, CHLORIDE 114, POTASSIUM 3.2, BUN 63, CREATININE 1.08, GLUCOSE 130, AST DECREASED TO 266, ALT DECREASED TO 445, ALK PHOS 171, ALBUMIN 2.6. PRELIMINARY BLOOD CULTURES REPORT NO GROWTH. CONSULTED WITH PATIENT YESTERDAY. HE SUGGESTED TO CONTINUE HYDRATION. HE PLANS FOR EGD ON AN OUTPATIENT BASIS NEXT WEDNESDAY. WE WELL PATIENT AND FAMILY ARE IN AGREEMENT WITH PLAN. HE SUGGESTED A LIVER US. WE WILL OBTAIN IN THE AM. WE WILL ADD PEPCID 20MG IV BID, ALBUMIN 25% DAILY, START PERIPHERAL TPN AND REPLEAT POTASSIUM. WE PLAN TO RECHECK AM LABS AND CONTINUE TO MONITOR PATIENT. - Past Medical Family Social History Past Med/Fam/Surg Hx: No changes since H&P Allergies: Allergies No Known Drug Allergies Allergy (Unverified 05/17/17 07:39) - Review of Systems ROS: No change since H&P - Vital Signs and I&O's Vital Signs: Temperature 99.3 F Pulse Rate [Left Brachial] 95 Respiratory Rate 18 Blood Pressure [Left Arm] 141/63 Blood Pressure [Right Arm] 172/81 Blood Pressure 138/68 O2 Sat by Pulse Oximetry 100 Intake and Output: Intake & Output 06/23/17 06/24/17 06/25/17 06/26/17 11:59 11:59 11:59 11:59 Intake Total 385 228 895 5974 Balance 385 659 249 9084 - Physical Exam Oriented: Normal Eyes: Normal Ear: Normal Nose: Normal Throat: Normal Respiratory: Normal Cardiovascular: Tachycardia : Normal Auscultation: Bowel Sounds: Normal Palpation: Normal Tenderness: Normal Skin: Normal Musculoskeletal: Normal, Right, Arm, Leg (PARALYSIS ) Psychiatric: Normal Mood Description: Calm Affect: Normal Speech Pattern: Clear, Appropriate - Laboratory and Diagnostics Result Diagrams: 06/25/17 05:17 06/25/17 15:19 Labs: 06/23/17 11:50 Blood Blood Culture - Preliminary 06/23/17 11:35 Blood Blood Culture - Preliminary Laboratory WBC 12.2 X10^3/uL (3.6-10.0) H 06/25/17 05:17 RBC 3.37 X10^6/uL (3.5-5.4) L 06/25/17 05:17 Hgb 9.3 g/dL (12.0-16.0) L 06/25/17 05:17 Hct 29.3 % (36.0-47.0) L 06/25/17 05:17 MCV 86.7 fL (80.0-100.0) 06/25/17 05:17 MCH 27.6 pg (27.0-34.0) 06/25/17 05:17 MCHC 31.8 g/dL (33.0-35.0) L 06/25/17 05:17 RDW 17.6 % (11.6-16.5) H 06/25/17 05:17 Plt Count 268 X10^3/uL (150.0-450.0) 06/25/17 05:17 MPV 8.5 fL (7.4-11.0) 06/25/17 05:17 Neut % 84.9 % (42.0-75.0) H 06/25/17 05:17 Lymph % 6.3 % (21.0-51.0) L 06/25/17 05:17 Person % 7.0 % (0.0-13.0) 06/25/17 05:17 Eos % 1.5 % (0.9-2.9) 06/25/17 05:17 Baso % 0.3 % (0.2-1.0) 06/25/17 05:17 Neut # 10.4 x10^3/uL (2.2-4.8) H 06/25/17 05:17 Lymph # 0.8 X10^3/uL (1.3-2.9) L 06/25/17 05:17 Person # 0.9 x10^3/uL (0.3-0.8) H 06/25/17 05:17 Eos # 0.2 x10^3/uL (0.0-0.2) 06/25/17 05:17 Baso # 0.0 X10^3/uL (0.0-0.1) 06/25/17 05:17 Absolute Nucleated RBC 0.1 /100WBC 06/25/17 05:17 Sodium 150 mmol/L (136-145) H* 06/25/17 05:17 Corrected Sodium 151 mmol/L (136-145) H 06/25/17 05:17 Potassium 3.6 mmol/L (3.5-5.1) 06/25/17 15:19 Chloride 114 mmol/L (98-107) H 06/25/17 05:17 Carbon Dioxide 24.5 mmol/L (21-32) 06/25/17 05:17 BUN 63 mg/dL (7-18) H 06/25/17 05:17 Creatinine 1.08 mg/dL (0.55-1.02) H 06/25/17 05:17 Est GFR (MDRD) Af Amer > 60 (>60) 06/25/17 05:17 Est GFR (MDRD) Non-Af 52 (>60) L 06/25/17 05:17 Glucose 130 mg/dL (65-99) H 06/25/17 05:17 Calcium 9.4 mg/dL (8.5-10.1) 06/25/17 05:17 Corrected Calcium 10.5 mg/dL (8.5-10.1) H 06/25/17 05:17 Total Bilirubin 0.40 mg/dL (0.2-1.0) 06/25/17 05:17 AST 266 Units/L (15-37) H 06/25/17 05:17 ALT 445 Units/L (12-78) H 06/25/17 05:17 Alkaline Phosphatase 171 Units/L (46-116) H 06/25/17 05:17 Creatine Kinase 28 Units/L (26-192) 06/24/17 09:40 Total Protein 6.5 g/dL (6.4-8.2) 06/25/17 05:17 Albumin 2.6 g/dL (3.4-5.0) L 06/25/17 05:17 Globulin 3.9 g/dL (2.5-4.5) 06/25/17 05:17 Albumin/Globulin Ratio 0.7 Ratio (1.1-2.1) L 06/25/17 05:17 - Plan (1) UTI (urinary tract infection) Status: Acute Qualifiers: Urinary tract infection type: site unspecified Hematuria presence: without hematuria Qualified Code(s): N39.0 - Urinary tract infection, site not specified Plan: LEVAQUIN 500MG IV DAILY, CONTINUE TO MONITOR (2) Altered mental status Status: Acute Qualifiers: Altered mental status type: disorientation Qualified Code(s): R41.0 - Disorientation, unspecified Plan: TREAT INFECTION, CONTINUE TO MONITOR (3) Tachycardia Status: Acute Plan: HYDRATE, TELEMETRY, CONTINUE TO MONITOR (4) Swallowing difficulty Status: Acute Qualifiers: Dysphagia type: unspecified Qualified Code(s): R13.10 - Dysphagia, unspecified Plan: SWALLOWING STUDY, MECHANICAL SOFT DIET WITH NECTAR THICK LIQUIDS, SUCTION NEEDED, CONTINUE TO MONITOR (5) Hypoalbuminemia due to protein-calorie malnutrition Status: Acute Plan: PERIPHERAL TPN, ALBUMIN 25% DAILY, CONTINUE TO MONITOR (6) GERD (gastroesophageal reflux disease) Status: Acute Qualifiers: Esophagitis presence: esophagitis presence not specified Qualified Code(s) : K21.9 - Gastro-esophageal reflux disease without esophagitis Plan: PEPCID 20MG IV BID, CONTINUE TO MONITOR (7) Elevated liver enzymes Status: Acute Plan: LIVER US, CONTINUE TO MONITOR
[2017-06-25] MEDS: PEPCID 20 MG IV PREMIX* 20 MG/50 ML BAG IV SCH (21:39)
--- NOTE | 2017-06-25 22:41 | US ---
Ultrasound of the liver Indications: Elevated liver enzymes Technique: Grayscale with color Doppler imaging of the liver was performed. Findings: The liver is normal in echotexture and size measuring 14.0 x 6.8 x 8.0 centimeters. No intr ahepatic biliary dilatation is seen. The gallbladder contains a large amount of sludge with a small c luster of mobile stones. There is minimal gallbladder wall thickening at 4.8 millimeters. There is no adjacent fluid. The common bile duct measures 2.9 millimeters. There is no evidence of extrahepatic biliary dilatation. The right kidney is normal in echotexture and without hydronephrosis or mass. Conclusion: 1. Normal sonographic appearance of the liver. 2. Large amount of gallbladder sludge and stones with gallbladder wall thickening but no adjacent flu id. Nuclear medicine hepatobiliary scan may be helpful to evaluate for chronic cholecystitis. Reported By:
[2017-06-26] MEDS ORDERED: LANTISEPTIC ONE (03:50)
[2017-06-26] MEDS: D5W 1000 ML IV 1,000 ML IV SCH ×2 (05:23→18:41)
[2017-06-26] MEDS: LANTISEPTIC TOP PRN (05:27)
[2017-06-26 06:19] LABS: BASOPHILS # (AUTO) 0.1 X10^3/uL (0.0-0.1); BASOPHILS % (AUTO) 0.6 % (0.2-1.0); EOSINOPHILS # (AUTO) 0.3 x10^3/uL (0.0-0.2); HEMOGLOBIN 8.1 g/dL (12.0-16.0); LYMPHOCYTES # (AUTO) 0.7 X10^3/uL (1.3-2.9); MEAN CORPUSCULAR HEMOGLOBIN 27.6 pg (27.0-34.0); MEAN CORPUSCULAR HGB CONC 32.6 g/dL (33.0-35.0); MEAN CORPUSCULAR VOLUME 84.8 fL (80.0-100.0); MONOCYTES # (AUTO) 0.4 x10^3/uL (0.3-0.8); NEUTROPHILS # (AUTO) 9.6 x10^3/uL (2.2-4.8); NEUTROPHILS % (AUTO) 86.4 % (42.0-75.0); PLATELET COUNT 197 X10^3/uL (150.0-450.0); RED BLOOD COUNT 2.95 X10^6/uL (3.5-5.4); RED CELL DISTRIBUTION WIDTH 17.7 % (11.6-16.5); WHITE BLOOD COUNT 11.1 X10^3/uL (3.6-10.0)
[2017-06-26 06:30] LABS: ALANINE AMINOTRANSFERASE 237 Units/L (12-78); ALBUMIN 2.7 g/dL (3.4-5.0); ALKALINE PHOSPHATASE 122 Units/L (46-116); ASPARTATE AMINO TRANSFERASE 122 Units/L (15-37); BLOOD UREA NITROGEN 36 mg/dL (7-18); CALCIUM 8.6 mg/dL (8.5-10.1); CARBON DIOXIDE 24.5 mmol/L (21-32); CHLORIDE 103 mmol/L (98-107); COR CA(FOR HYPOALB) 9.6 mg/dL (8.5-10.1); COR NA(FOR HYPERGLY) 138 mmol/L (136-145); CREATININE 0.81 mg/dL (0.55-1.02); SODIUM 137 mmol/L (136-145); eGFR BLACK RACES > 60 (>60); eGFR NON BLACK RACES > 60 (>60)
[2017-06-26 06:37] LABS: BAND NEUTROPHILS % 9 % (0-10); PLATELET MORPHOLOGY COMMENT NORMAL (NORMAL)
[2017-06-26 06:38] LABS: HYPOCHROMASIA SLIGHT
[2017-06-26] MEDS: K-DUR TAB 20 MEQ PO PRN (07:01)
[2017-06-26] MEDS: ALBUMIN HUMAN 25%- 100ML 100 ML IV SCH (09:10)
[2017-06-26] MEDS: ASPIRIN PO SCH (10:30)
[2017-06-26] MEDS: SYNTHROID 50 mcg TAB PO SCH (10:56)
[2017-06-26] MEDS: MAXZIDE 75/50 MG PO SCH (10:56)
[2017-06-26] MEDS: REMERON PO SCH (10:56)
[2017-06-26] MEDS: LEVAQUIN PREMIX IV 500 MG 500 MG/100 ML BAG IV SCH (10:56)
[2017-06-26] MEDS: VITAMIN B-12 PO SCH (10:56)
[2017-06-26] MEDS: VITAMIN D3 PO SCH (10:57)
[2017-06-26] MEDS: ZYLOPRIM PO SCH (10:57)
[2017-06-26] MEDS: PEPCID 20 MG IV PREMIX* 20 MG/50 ML BAG IV SCH ×2 (10:57→20:40)
[2017-06-26] MEDS: K-RIDER 10 MEQ/NS 100 ML 10 MEQ/100 ML BAG IV PRN ×4 (14:20→21:40)
[2017-06-26] MEDS: PROTONIX INJ 40 MG VIAL IVP SCH ×2 (16:48→20:40)
[2017-06-26] MEDS: SINGULAIR TAB 10 MG PO SCH (20:40)
[2017-06-26] MEDS: ZOCOR TAB 40 MG PO SCH (20:41)
[2017-06-26] MEDS: COLACE CAP 100 MG PO SCH (20:41)
[2017-06-26] MEDS: MILK OF MAGNESIA PO SCH (20:41)
[2017-06-27 05:17] LABS: ALANINE AMINOTRANSFERASE 156 Units/L (12-78); ALBUMIN 2.9 g/dL (3.4-5.0); ALKALINE PHOSPHATASE 104 Units/L (46-116); ASPARTATE AMINO TRANSFERASE 69 Units/L (15-37); BLOOD UREA NITROGEN 22 mg/dL (7-18); CALCIUM 8.8 mg/dL (8.5-10.1); CARBON DIOXIDE 24.6 mmol/L (21-32); CHLORIDE 101 mmol/L (98-107); COR CA(FOR HYPOALB) 9.7 mg/dL (8.5-10.1); COR NA(FOR HYPERGLY) 136 mmol/L (136-145); CREATININE 0.75 mg/dL (0.55-1.02); SODIUM 135 mmol/L (136-145); TOTAL PROTEIN 5.9 g/dL (6.4-8.2); eGFR BLACK RACES > 60 (>60); eGFR NON BLACK RACES > 60 (>60)
[2017-06-27] MEDS: D5W 1000 ML IV 1,000 ML IV SCH ×4 (05:59→22:09)
[2017-06-27 06:15] LABS: BASOPHILS # (AUTO) 0.1 X10^3/uL (0.0-0.1); BASOPHILS % (AUTO) 0.5 % (0.2-1.0); EOSINOPHILS # (AUTO) 0.4 x10^3/uL (0.0-0.2); EOSINOPHILS % (AUTO) 2.7 % (0.9-2.9); HEMATOCRIT 27.8 % (36.0-47.0); LYMPHOCYTES # (AUTO) 0.9 X10^3/uL (1.3-2.9); LYMPHOCYTES % (AUTO) 6.8 % (21.0-51.0); MEAN CORPUSCULAR HEMOGLOBIN 27.1 pg (27.0-34.0); MEAN CORPUSCULAR HGB CONC 32.3 g/dL (33.0-35.0); MEAN CORPUSCULAR VOLUME 83.9 fL (80.0-100.0); MONOCYTES # (AUTO) 0.7 x10^3/uL (0.3-0.8); NEUTROPHILS # (AUTO) 11.8 x10^3/uL (2.2-4.8); PLATELET COUNT 226 X10^3/uL (150.0-450.0); RED BLOOD COUNT 3.31 X10^6/uL (3.5-5.4); RED CELL DISTRIBUTION WIDTH 17.7 % (11.6-16.5); WHITE BLOOD COUNT 13.9 X10^3/uL (3.6-10.0)
[2017-06-27 06:24] LABS: BAND NEUTROPHILS % 1 % (0-10)
[2017-06-27 06:25] LABS: HYPOCHROMASIA SLIGHT; PLATELET MORPHOLOGY COMMENT NORMAL (NORMAL)
[2017-06-27] MEDS: ALBUMIN HUMAN 25%- 100ML 100 ML IV SCH (09:37)
[2017-06-27] MEDS: PEPCID 20 MG IV PREMIX* 20 MG/50 ML BAG IV SCH ×2 (09:38→20:38)
[2017-06-27] MEDS: LEVAQUIN PREMIX IV 500 MG 500 MG/100 ML BAG IV SCH (09:39)
[2017-06-27] MEDS: VITAMIN B-12 PO SCH (09:39)
[2017-06-27] MEDS: ZYLOPRIM PO SCH (09:40)
[2017-06-27] MEDS: ASPIRIN PO SCH (09:40)
[2017-06-27] MEDS: SYNTHROID 50 mcg TAB PO SCH (09:41)
[2017-06-27] MEDS: MAXZIDE 75/50 MG PO SCH (09:42)
[2017-06-27] MEDS: VITAMIN D3 PO SCH (09:42)
[2017-06-27] MEDS: PROTONIX INJ 40 MG VIAL IVP SCH ×2 (09:43→20:40)
[2017-06-27] MEDS: REMERON PO SCH (09:43)
[2017-06-27] MEDS: FORTAZ or TAZICEF INJ 2 GM in NS 50 ML IV + SPIKE MINIBAG* 50 ML IV SCH ×3 (11:43→21:01)
[2017-06-27] MEDS: PROCALAMINE 3 % 1,000 ML IV SCH (14:36)
--- NOTE | 2017-06-27 16:05 | RAD ---
HISTORY: Altered mental status, cough Study: AP chest. Comparison: 05/17/2017 Findings: Lungs are hypo aerated with chronic interstitial changes and subsegmental atelectasis in the left chito g base. Mild prominence of the perihilar interstitium is noted. No focal airspace opacities are seen. Cardiac silhouette is normal in size. IMPRESSION: 1. Mild peribronchial interstitial thickening of central airways which can be seen in setting of bro nchitis 2. Left basilar subsegmental atelectasis. Reported By:
[2017-06-27] MEDS ORDERED: BUTT CREAM (COMPOUND) ONE (17:21)
[2017-06-27] MEDS: ZOCOR TAB 40 MG PO SCH (20:40)
[2017-06-27] MEDS: SINGULAIR TAB 10 MG PO SCH (20:40)
[2017-06-27] MEDS: MILK OF MAGNESIA PO SCH (20:40)
[2017-06-27] MEDS: COLACE CAP 100 MG PO SCH (20:40)
[2017-06-28 05:21] LABS: BASOPHILS # (AUTO) 0.1 X10^3/uL (0.0-0.1); BASOPHILS % (AUTO) 0.6 % (0.2-1.0); EOSINOPHILS # (AUTO) 0.3 x10^3/uL (0.0-0.2); EOSINOPHILS % (AUTO) 3.1 % (0.9-2.9); HEMATOCRIT 24.7 % (36.0-47.0); HEMOGLOBIN 8.1 g/dL (12.0-16.0); LYMPHOCYTES # (AUTO) 0.9 X10^3/uL (1.3-2.9); LYMPHOCYTES % (AUTO) 8.3 % (21.0-51.0); MEAN CORPUSCULAR HEMOGLOBIN 27.4 pg (27.0-34.0); MEAN CORPUSCULAR VOLUME 83.1 fL (80.0-100.0); MEAN PLATELET VOLUME 8.7 fL (7.4-11.0); MONOCYTES # (AUTO) 0.7 x10^3/uL (0.3-0.8); MONOCYTES % (AUTO) 6.1 % (0.0-13.0); NEUTROPHILS # (AUTO) 9.2 x10^3/uL (2.2-4.8); NEUTROPHILS % (AUTO) 81.9 % (42.0-75.0); PLATELET COUNT 211 X10^3/uL (150.0-450.0); RED BLOOD COUNT 2.97 X10^6/uL (3.5-5.4); RED CELL DISTRIBUTION WIDTH 18.1 % (11.6-16.5); WHITE BLOOD COUNT 11.2 X10^3/uL (3.6-10.0)
[2017-06-28] MEDS: FORTAZ or TAZICEF INJ 2 GM in NS 50 ML IV + SPIKE MINIBAG* 50 ML IV SCH ×3 (05:26→21:36)
[2017-06-28 05:50] LABS: ALANINE AMINOTRANSFERASE 103 Units/L (12-78); ALBUMIN 2.9 g/dL (3.4-5.0); ALKALINE PHOSPHATASE 80 Units/L (46-116); ASPARTATE AMINO TRANSFERASE 47 Units/L (15-37); BLOOD UREA NITROGEN 21 mg/dL (7-18); CALCIUM 8.8 mg/dL (8.5-10.1); CARBON DIOXIDE 26.1 mmol/L (21-32); CHLORIDE 101 mmol/L (98-107); COR CA(FOR HYPOALB) 9.7 mg/dL (8.5-10.1); CREATININE 0.71 mg/dL (0.55-1.02); SODIUM 136 mmol/L (136-145); TOTAL PROTEIN 5.9 g/dL (6.4-8.2); eGFR BLACK RACES > 60 (>60); eGFR NON BLACK RACES > 60 (>60)
[2017-06-28] MEDS: K-RIDER 10 MEQ/NS 100 ML 10 MEQ/100 ML BAG IV PRN ×3 (06:02→13:27)
[2017-06-28 06:04] LABS: BAND NEUTROPHILS % 4 % (0-10); HYPOCHROMASIA 1+; PLATELET MORPHOLOGY COMMENT NORMAL (NORMAL)
[2017-06-28] MEDS: ALBUMIN HUMAN 25%- 100ML 100 ML IV SCH (09:16)
[2017-06-28] MEDS: LEVAQUIN PREMIX IV 500 MG 500 MG/100 ML BAG IV SCH (09:18)
[2017-06-28] MEDS: MAXZIDE 75/50 MG PO SCH (09:18)
[2017-06-28] MEDS: ASPIRIN PO SCH (09:18)
[2017-06-28] MEDS: PEPCID 20 MG IV PREMIX* 20 MG/50 ML BAG IV SCH ×3 (09:18→21:56)
[2017-06-28] MEDS: PROTONIX INJ 40 MG VIAL IVP SCH ×2 (09:18→21:35)
[2017-06-28] MEDS: VITAMIN D3 PO SCH (09:19)
[2017-06-28] MEDS: SYNTHROID 50 mcg TAB PO SCH (09:19)
[2017-06-28] MEDS: ZYLOPRIM PO SCH (09:19)
[2017-06-28] MEDS: VITAMIN B-12 PO SCH (09:19)
[2017-06-28] MEDS: REMERON PO SCH (09:19)
[2017-06-28] MEDS ORDERED: TYLENOL 325 MG TAB PO PRN (09:57)
[2017-06-28] MEDS ORDERED: BENADRYL INJ 50 MG VIAL IVP PRN (09:57)
[2017-06-28] MEDS ORDERED: NS 500 ML IV 500 ML IV ONE (09:57)
[2017-06-28] MEDS ORDERED: LASIX IVP ONE ×2 (09:58→22:00)
[2017-06-28] MEDS ORDERED: ASPIRIN PO SCH (10:02)
--- NOTE | 2017-06-28 16:27 | RAD ---
KUB Indication: IVC filter placement Comparison: None available Findings: An IVC filter is noted the superior tip of the filter appears to be at the level of the superior endp late of L2. The IVC filter projects in expected orientation There is a normal bowel gas pattern. No free air or pneumatosis. No pathological soft tissue mass or calcification can be observed. The bony structures are grossly intact. IMPRESSION: No evidence for acute abdominal or pelvic pathology identified. IVC filter projects expected orientation with the superior margin of the filter at the level of super ior endplate of L2. Reported By:
[2017-06-28] MEDS: D5W 1000 ML IV 1,000 ML IV SCH ×2 (16:45)
[2017-06-28] MEDS: PROCALAMINE 3 % 1,000 ML IV SCH (16:48)
[2017-06-28] MEDS ORDERED: NS 100 ML IV + SPIKE MINIBAG* 100 ML IV ONE (21:24)
[2017-06-28] MEDS ORDERED: FORTAZ or TAZICEF INJ ONE (21:24)
[2017-06-28] MEDS: SINGULAIR TAB 10 MG PO SCH ×2 (21:37→21:58)
[2017-06-28] MEDS: MILK OF MAGNESIA PO SCH ×2 (21:37→21:57)
[2017-06-28] MEDS: COLACE CAP 100 MG PO SCH ×2 (21:37→21:58)
[2017-06-28] MEDS: ZOCOR TAB 40 MG PO SCH ×2 (21:37→21:58)
--- NOTE | 2017-06-28 21:41 | PCM.PROG ---
Progress Note - Progress Note for Day of Date: 06/26/17 - Subjective Subjective: WAS ADMITTED FOR UROSEPSIS AND ALTERED MENTAL STATUS. SHE IS ALERT AND ORIENTED, LYING IN BED ON MORNING ROUNDS. PATIENTS DAUGHTER IS AT BEDSIDE. PATIENT CONTINUES WITH COMPLAINTS OF DIFFICULTY SWALLOWING. SHE VOICES COMPLAINTS OF LOWER ABDOMINAL PAIN THIS MORNING. STAFF REPORTS THAT PATIENT HAS HAD FREQUENT URINATION. SHE IS NOTED ON TELEMETRY WITH HEARTRATE 95 BPM THIS MORNING, SINUS RHYTHM. PATIENT HAS PREVIOUSLY BEEN TACHYCARDIC WITH HR 120-130. VITALS ON MORNING ROUNDS ARE 97.4-95-20-99%-127/58. LABS WERE OBTAINED. ABNORMAL LAB VALUES INCLUDE THE FOLLOWING: WBC 11.1, RBC 3.31, HGB 9.0 , HCT 27.8, POTASSIUM 3.1, BUN 36, GLUCOSE 129, AST 122, ALT 237, ALK PHOS 122, TOTAL PROTEIN 6.0, ALBUMIN 2.7. A LIVER US WAS OBTAINED. IT REPORTED LARGE AMOUNT OF GALLBLADDER SLUDGE AND STONES WITH GALLBLADDER WALL THICKENING, NORMAL APPEARANCE OF THE LIVER. WE WILL START PROTONIX 40MG PO BID, OTHERWISE, WE WILL CONTINUE WITH CURRENT PLAN OF CARE. WE PLAN TO RECHECK CBC, CMP, AND CHEST XRAY IN THE MORNING. WE WILL CONTINUE TO MONITOR PATIENT. - Past Medical Family Social History Past Med/Fam/Surg Hx: No changes since H&P Allergies: Allergies No Known Drug Allergies Allergy (Unverified 05/17/17 07:39) - Review of Systems ROS: No change since H&P - Vital Signs and I&O's Vital Signs: Temperature 98.0 F Pulse Rate [Left Brachial] 92 Respiratory Rate 20 Blood Pressure [Left Arm] 125/92 Blood Pressure [Right Arm] 117/82 Blood Pressure 138/68 O2 Sat by Pulse Oximetry 100 Intake and Output: Intake & Output 06/26/17 06/27/17 06/28/17 06/29/17 11:59 11:59 11:59 11:59 Intake Total 501 4461 4850 1701 Output Total 1 Balance 6118 4448 1790 1705 - Physical Exam Oriented: Normal Eyes: Normal Ear: Normal Nose: Normal Throat: Normal Respiratory: Normal Cardiovascular: Normal : Normal Auscultation: Bowel Sounds: Normal Palpation: Normal Tenderness: Normal Skin: Normal Musculoskeletal: Normal, Right, Arm, Leg (PARALYSIS ) Psychiatric: Normal Mood Description: Calm Affect: Normal Speech Pattern: Delayed - Laboratory and Diagnostics Result Diagrams: 06/28/17 03:00 06/28/17 03:00 Labs: 06/23/17 11:50 Blood Blood Culture - Final 06/23/17 11:35 Blood Blood Culture - Final Laboratory WBC 11.2 X10^3/uL (3.6-10.0) H 06/28/17 03:00 RBC 2.97 X10^6/uL (3.5-5.4) L 06/28/17 03:00 Hgb 8.1 g/dL (12.0-16.0) L 06/28/17 03:00 Hct 24.7 % (36.0-47.0) L 06/28/17 03:00 MCV 83.1 fL (80.0-100.0) 06/28/17 03:00 MCH 27.4 pg (27.0-34.0) 06/28/17 03:00 MCHC 33.0 g/dL (33.0-35.0) 06/28/17 03:00 RDW 18.1 % (11.6-16.5) H 06/28/17 03:00 Plt Count 211 X10^3/uL (150.0-450.0) 06/28/17 03:00 Plt Count Comment Adequate (ADEQUATE) 06/28/17 03:00 MPV 8.7 fL (7.4-11.0) 06/28/17 03:00 Neut % 81.9 % (42.0-75.0) H 06/28/17 03:00 Lymph % 8.3 % (21.0-51.0) L 06/28/17 03:00 [place] % 6.1 % (0.0-13.0) 06/28/17 03:00 Eos % 3.1 % (0.9-2.9) H 06/28/17 03:00 Baso % 0.6 % (0.2-1.0) 06/28/17 03:00 Neut # 9.2 x10^3/uL (2.2-4.8) H 06/28/17 03:00 Lymph # 0.9 X10^3/uL (1.3-2.9) L 06/28/17 03:00 [place] # 0.7 x10^3/uL (0.3-0.8) 06/28/17 03:00 Eos # 0.3 x10^3/uL (0.0-0.2) H 06/28/17 03:00 Baso # 0.1 X10^3/uL (0.0-0.1) 06/28/17 03:00 Absolute Nucleated RBC 0.1 /100WBC 06/28/17 03:00 Total Counted 100 06/28/17 03:00 Neutrophils % (Manual) 76 % (39-76) 06/28/17 03:00 Band Neutrophils % 4 % (0-10) 06/28/17 03:00 Lymphocytes % (Manual) 13 % (13-43) 06/28/17 03:00 Monocytes % (Manual) 4 % (4-9) 06/28/17 03:00 Eosinophils % (Manual) 3 % (0-6) 06/28/17 03:00 Plt Morphology Comment Normal (NORMAL) 06/28/17 03:00 RBC Morphology Abnormal (NORMAL) A 06/28/17 03:00 Hypochromasia 1+ A 06/28/17 03:00 Sodium 136 mmol/L (136-145) 06/28/17 03:00 Corrected Sodium TNP 06/28/17 03:00 Potassium 3.1 mmol/L (3.5-5.1) L 06/28/17 03:00 Chloride 101 mmol/L (98-107) 06/28/17 03:00 Carbon Dioxide 26.1 mmol/L (21-32) 06/28/17 03:00 BUN 21 mg/dL (7-18) H 06/28/17 03:00 Creatinine 0.71 mg/dL (0.55-1.02) 06/28/17 03:00 Est GFR (MDRD) Af Amer > 60 (>60) 06/28/17 03:00 Est GFR (MDRD) Non-Af > 60 (>60) 06/28/17 03:00 Glucose 109 mg/dL (65-99) H 06/28/17 03:00 Calcium 8.8 mg/dL (8.5-10.1) 06/28/17 03:00 Corrected Calcium 9.7 mg/dL (8.5-10.1) 06/28/17 03:00 Total Bilirubin 0.40 mg/dL (0.2-1.0) 06/28/17 03:00 AST 47 Units/L (15-37) H 06/28/17 03:00 ALT 103 Units/L (12-78) H 06/28/17 03:00 Alkaline Phosphatase 80 Units/L (46-116) 06/28/17 03:00 Creatine Kinase 28 Units/L (26-192) 06/24/17 09:40 Total Protein 5.9 g/dL (6.4-8.2) L 06/28/17 03:00 Albumin 2.9 g/dL (3.4-5.0) L 06/28/17 03:00 Globulin 3.0 g/dL (2.5-4.5) 06/28/17 03:00 Albumin/Globulin Ratio 1.0 Ratio (1.1-2.1) L 06/28/17 03:00 Blood Type A POSITIVE 06/28/17 10:30 Antibody Screen Negative 06/28/17 10:30 Crossmatch See Detail 06/28/17 10:30 - Plan (1) UTI (urinary tract infection) Status: Acute Qualifiers: Urinary tract infection type: site unspecified Hematuria presence: without hematuria Qualified Code(s): N39.0 - Urinary tract infection, site not specified Plan: LEVAQUIN 500MG IV DAILY, CONTINUE TO MONITOR (2) Altered mental status Status: Acute Qualifiers: Altered mental status type: disorientation Qualified Code(s): R41.0 - Disorientation, unspecified Plan: TREAT INFECTION, CONTINUE TO MONITOR (3) Tachycardia Status: Acute Plan: HYDRATE, TELEMETRY, CONTINUE TO MONITOR (4) Swallowing difficulty Status: Acute Qualifiers: Dysphagia type: unspecified Qualified Code(s): R13.10 - Dysphagia, unspecified Plan: SWALLOWING STUDY, MECHANICAL SOFT DIET WITH NECTAR THICK LIQUIDS, SUCTION NEEDED, CONTINUE TO MONITOR (5) Hypoalbuminemia due to protein-calorie malnutrition Status: Acute Plan: PERIPHERAL TPN, ALBUMIN 25% DAILY, CONTINUE TO MONITOR (6) GERD (gastroesophageal reflux disease) Status: Acute Qualifiers: Esophagitis presence: esophagitis presence not specified Qualified Code(s) : K21.9 - Gastro-esophageal reflux disease without esophagitis Plan: PEPCID 20MG IV BID, CONTINUE TO MONITOR (7) Elevated liver enzymes Status: Acute Plan: LIVER US, CONTINUE TO MONITOR
--- NOTE | 2017-06-28 21:42 | PCM.PROG ---
Progress Note - Progress Note for Day of Date: 06/27/17 - Subjective Subjective: WAS ADMITTED FOR UROSEPSIS AND ALTERED MENTAL STATUS. SHE IS ALERT AND ORIENTED, LYING IN BED ON MORNING ROUNDS. PATIENTS DAUGHTER IS AT BEDSIDE. SHE CONTINUES WITH COMPLAINTS OF SUPRAPUBIC PAIN. ON EXAMINATION , LUNGS ARE NOTED CLEAR TO AUSCULTATION, BILATERALLY. ABDOMEN IS SOFT, FLAT, AND TENDER. BOWEL SOUNDS ARE NOTED NORMAL IN ALL QUADRANTS. SHE IS NOTED ON TELEMETRY WITH HEARTRATE 99 BPM THIS MORNING, SINUS RHYTHM. VITALS ON MORNING ROUNDS ARE 99.1-99-28-100%-116/56. LABS WERE OBTAINED. ABNORMAL LAB VALUES INCLUDE THE FOLLOWING: WBC 13.9 , RBC 3.31, HGB 9.0, HCT 27.8, SODIUM 135, BUN 22, CREATININE 122, AST 69, ALT 156, TOTAL PROTEIN 5.9, ALBUMIN 2.9. A CHEST XRAY WAS OBTAINED. IT REPORTED MILD PERIBRONCHIAL INTERSTITIAL THICKENING OF CENTRAL AIRWAYS WHICH CAN BE SEEN IN SETTING OF BRONCHITIS, LEFT BASILAR SUBSEGMENTAL ATELECTASIS. WE WILL CONTINUE WITH CURRENT PLAN OF CARE. WE PLAN TO RECHECK CBC, CMP, AND CHEST XRAY IN THE MORNING. WE WILL CONTINUE TO MONITOR PATIENT. WE WILL START FORTAZ 1 GM IV Q8H FOR INCREASING WBC, REPEAT BLOOD CULTURES, AND CONSULT FOR PEG TUBE AND PORT A CATH. - Past Medical Family Social History Past Med/Fam/Surg Hx: No changes since H&P Allergies: Allergies No Known Drug Allergies Allergy (Unverified 05/17/17 07:39) - Review of Systems ROS: No change since H&P - Vital Signs and I&O's Vital Signs: Temperature 98.0 F Pulse Rate [Left Brachial] 92 Respiratory Rate 20 Blood Pressure [Left Arm] 125/92 Blood Pressure [Right Arm] 117/82 Blood Pressure 138/68 O2 Sat by Pulse Oximetry 100 Intake and Output: Intake & Output 06/26/17 06/27/17 06/28/17 06/29/17 11:59 11:59 11:59 11:59 Intake Total 5012 4441 4038 1705 Output Total 1 Balance 5012 4441 4033 1705 - Physical Exam Oriented: Normal Eyes: Normal Ear: Normal Nose: Normal Throat: Normal Respiratory: Normal Cardiovascular: Normal : Normal Auscultation: Bowel Sounds: Normal Palpation: Normal Tenderness: Normal Skin: Normal Musculoskeletal: Normal, Right, Arm, Leg (PARALYSIS ) Psychiatric: Normal Mood Description: Calm Affect: Normal Speech Pattern: Clear - Laboratory and Diagnostics Result Diagrams: 06/28/17 03:00 06/28/17 03:00 Labs: 06/23/17 11:50 Blood Blood Culture - Final 06/23/17 11:35 Blood Blood Culture - Final Laboratory WBC 11.2 X10^3/uL (3.6-10.0) H 06/28/17 03:00 RBC 2.97 X10^6/uL (3.5-5.4) L 06/28/17 03:00 Hgb 8.1 g/dL (12.0-16.0) L 06/28/17 03:00 Hct 24.7 % (36.0-47.0) L 06/28/17 03:00 MCV 83.1 fL (80.0-100.0) 06/28/17 03:00 MCH 27.4 pg (27.0-34.0) 06/28/17 03:00 MCHC 33.0 g/dL (33.0-35.0) 06/28/17 03:00 RDW 18.1 % (11.6-16.5) H 06/28/17 03:00 Plt Count 211 X10^3/uL (150.0-450.0) 06/28/17 03:00 Plt Count Comment Adequate (ADEQUATE) 06/28/17 03:00 MPV 8.7 fL (7.4-11.0) 06/28/17 03:00 Neut % 81.9 % (42.0-75.0) H 06/28/17 03:00 Lymph % 8.3 % (21.0-51.0) L 06/28/17 03:00 [place] % 6.1 % (0.0-13.0) 06/28/17 03:00 Eos % 3.1 % (0.9-2.9) H 06/28/17 03:00 Baso % 0.6 % (0.2-1.0) 06/28/17 03:00 Neut # 9.2 x10^3/uL (2.2-4.8) H 06/28/17 03:00 Lymph # 0.9 X10^3/uL (1.3-2.9) L 06/28/17 03:00 [place] # 0.7 x10^3/uL (0.3-0.8) 06/28/17 03:00 Eos # 0.3 x10^3/uL (0.0-0.2) H 06/28/17 03:00 Baso # 0.1 X10^3/uL (0.0-0.1) 06/28/17 03:00 Absolute Nucleated RBC 0.1 /100WBC 06/28/17 03:00 Total Counted 100 06/28/17 03:00 Neutrophils % (Manual) 76 % (39-76) 06/28/17 03:00 Band Neutrophils % 4 % (0-10) 06/28/17 03:00 Lymphocytes % (Manual) 13 % (13-43) 06/28/17 03:00 Monocytes % (Manual) 4 % (4-9) 06/28/17 03:00 Eosinophils % (Manual) 3 % (0-6) 06/28/17 03:00 Plt Morphology Comment Normal (NORMAL) 06/28/17 03:00 RBC Morphology Abnormal (NORMAL) A 06/28/17 03:00 Hypochromasia 1+ A 06/28/17 03:00 Sodium 136 mmol/L (136-145) 06/28/17 03:00 Corrected Sodium TNP 06/28/17 03:00 Potassium 3.1 mmol/L (3.5-5.1) L 06/28/17 03:00 Chloride 101 mmol/L (98-107) 06/28/17 03:00 Carbon Dioxide 26.1 mmol/L (21-32) 06/28/17 03:00 BUN 21 mg/dL (7-18) H 06/28/17 03:00 Creatinine 0.71 mg/dL (0.55-1.02) 06/28/17 03:00 Est GFR (MDRD) Af Amer > 60 (>60) 06/28/17 03:00 Est GFR (MDRD) Non-Af > 60 (>60) 06/28/17 03:00 Glucose 109 mg/dL (65-99) H 06/28/17 03:00 Calcium 8.8 mg/dL (8.5-10.1) 06/28/17 03:00 Corrected Calcium 9.7 mg/dL (8.5-10.1) 06/28/17 03:00 Total Bilirubin 0.40 mg/dL (0.2-1.0) 06/28/17 03:00 AST 47 Units/L (15-37) H 06/28/17 03:00 ALT 103 Units/L (12-78) H 06/28/17 03:00 Alkaline Phosphatase 80 Units/L (46-116) 06/28/17 03:00 Creatine Kinase 28 Units/L (26-192) 06/24/17 09:40 Total Protein 5.9 g/dL (6.4-8.2) L 06/28/17 03:00 Albumin 2.9 g/dL (3.4-5.0) L 06/28/17 03:00 Globulin 3.0 g/dL (2.5-4.5) 06/28/17 03:00 Albumin/Globulin Ratio 1.0 Ratio (1.1-2.1) L 06/28/17 03:00 Blood Type A POSITIVE 06/28/17 10:30 Antibody Screen Negative 06/28/17 10:30 Crossmatch See Detail 06/28/17 10:30 - Plan (1) UTI (urinary tract infection) Status: Acute Qualifiers: Urinary tract infection type: site unspecified Hematuria presence: without hematuria Qualified Code(s): N39.0 - Urinary tract infection, site not specified Plan: LEVAQUIN 500MG IV DAILY, CONTINUE TO MONITOR (2) Altered mental status Status: Acute Qualifiers: Altered mental status type: disorientation Qualified Code(s): R41.0 - Disorientation, unspecified Plan: TREAT INFECTION, CONTINUE TO MONITOR (3) Tachycardia Status: Acute Plan: HYDRATE, TELEMETRY, CONTINUE TO MONITOR (4) Swallowing difficulty Status: Acute Qualifiers: Dysphagia type: unspecified Qualified Code(s): R13.10 - Dysphagia, unspecified Plan: SWALLOWING STUDY, MECHANICAL SOFT DIET WITH NECTAR THICK LIQUIDS, SUCTION NEEDED, CONTINUE TO MONITOR (5) Hypoalbuminemia due to protein-calorie malnutrition Status: Acute Plan: PERIPHERAL TPN, ALBUMIN 25% DAILY, CONTINUE TO MONITOR (6) GERD (gastroesophageal reflux disease) Status: Acute Qualifiers: Esophagitis presence: esophagitis presence not specified Qualified Code(s) : K21.9 - Gastro-esophageal reflux disease without esophagitis Plan: PEPCID 20MG IV BID, CONTINUE TO MONITOR (7) Elevated liver enzymes Status: Acute Plan: LIVER US, CONTINUE TO MONITOR
[2017-06-28] MEDS ORDERED: NS 250 ML IV 250 ML IV ONE (23:10)
[2017-06-29 04:03] LABS: BASOPHILS # (AUTO) 0.2 X10^3/uL (0.0-0.1); BASOPHILS % (AUTO) 1.3 % (0.2-1.0); EOSINOPHILS # (AUTO) 0.3 x10^3/uL (0.0-0.2); EOSINOPHILS % (AUTO) 2.3 % (0.9-2.9); HEMATOCRIT 38.8 % (36.0-47.0); HEMOGLOBIN 12.9 g/dL (12.0-16.0); LYMPHOCYTES # (AUTO) 0.8 X10^3/uL (1.3-2.9); LYMPHOCYTES % (AUTO) 6.3 % (21.0-51.0); MEAN CORPUSCULAR HGB CONC 33.3 g/dL (33.0-35.0); MEAN CORPUSCULAR VOLUME 84.1 fL (80.0-100.0); MEAN PLATELET VOLUME 7.9 fL (7.4-11.0); MONOCYTES # (AUTO) 0.7 x10^3/uL (0.3-0.8); MONOCYTES % (AUTO) 5.8 % (0.0-13.0); NEUTROPHILS # (AUTO) 10.7 x10^3/uL (2.2-4.8); NEUTROPHILS % (AUTO) 84.3 % (42.0-75.0); PLATELET COUNT 224 X10^3/uL (150.0-450.0); RED BLOOD COUNT 4.61 X10^6/uL (3.5-5.4); WHITE BLOOD COUNT 12.7 X10^3/uL (3.6-10.0)
[2017-06-29 04:28] LABS: ALANINE AMINOTRANSFERASE 81 Units/L (12-78); ALBUMIN 3.6 g/dL (3.4-5.0); ALKALINE PHOSPHATASE 83 Units/L (46-116); ASPARTATE AMINO TRANSFERASE 42 Units/L (15-37); BLOOD UREA NITROGEN 19 mg/dL (7-18); CALCIUM 9.4 mg/dL (8.5-10.1); CARBON DIOXIDE 27.8 mmol/L (21-32); CHLORIDE 101 mmol/L (98-107); CREATININE 0.76 mg/dL (0.55-1.02); SODIUM 138 mmol/L (136-145); eGFR BLACK RACES > 60 (>60); eGFR NON BLACK RACES > 60 (>60)
[2017-06-29 04:39] LABS: BAND NEUTROPHILS % 2 % (0-10)
[2017-06-29 04:40] LABS: PLATELET MORPHOLOGY COMMENT NORMAL (NORMAL)
[2017-06-29] MEDS ORDERED: NS 50 ML IV 50 ML IV ONE ×2 (05:31→14:04)
[2017-06-29] MEDS ORDERED: FORTAZ or TAZICEF INJ ONE ×2 (05:31→14:05)
[2017-06-29] MEDS: FORTAZ or TAZICEF INJ 2 GM in NS 50 ML IV + SPIKE MINIBAG* 50 ML IV SCH ×2 (05:53→14:09)
[2017-06-29] MEDS: K-RIDER 10 MEQ/NS 100 ML 10 MEQ/100 ML BAG IV PRN ×5 (05:57→12:40)
--- NOTE | 2017-06-29 07:37 | RAD ---
HISTORY: Urinary tract infection Study: Chest AP portable Comparison: June 11, 2017 Findings: The heart is enlarged. No congestive heart failure is noted. The yaneth are normal. The lungs are free of acute infiltrates. No pleural effusions are identified. The bony thorax is unremarkable. IMPRESSION: Minimal cardiomegaly without congestive heart failure Lungs clear Reported By:
[2017-06-29] MEDS: ZYLOPRIM PO SCH (09:30)
[2017-06-29] MEDS: LEVAQUIN PREMIX IV 500 MG 500 MG/100 ML BAG IV SCH (09:30)
[2017-06-29] MEDS: VITAMIN D3 PO SCH (09:33)
[2017-06-29] MEDS: SYNTHROID 50 mcg TAB PO SCH (09:34)
[2017-06-29] MEDS: VITAMIN B-12 PO SCH (09:34)
[2017-06-29] MEDS: PEPCID 20 MG IV PREMIX* 20 MG/50 ML BAG IV SCH ×2 (09:35→21:34)
[2017-06-29] MEDS: PROTONIX INJ 40 MG VIAL IVP SCH ×2 (09:35→21:34)
[2017-06-29] MEDS: MAXZIDE 75/50 MG PO SCH (09:35)
[2017-06-29] MEDS: REMERON PO SCH (09:35)
[2017-06-29] MEDS: ALBUMIN HUMAN 25%- 100ML 100 ML IV SCH (11:20)
--- NOTE | 2017-06-29 12:18 | PCM.PROG ---
Progress Note - Progress Note for Day of Date: 06/28/17 - Subjective Subjective: WAS ADMITTED FOR UROSEPSIS AND ALTERED MENTAL STATUS. SHE IS ALERT AND ORIENTED, LYING IN BED ON MORNING ROUNDS. PATIENTS DAUGHTER IS AT BEDSIDE. PATIENT IS NOTED WITH NO COMPLAINTS ON MORNING ROUNDS. SHE DENIES ABDOMINAL PAIN. SHE CONTINUES WITH WEAKNESS TO LEFT ARM AND LEFT LEG. ON EXAMINATION, LUNGS ARE NOTED CLEAR TO AUSCULTATION, BILATERALLY. ABDOMEN IS SOFT, FLAT, AND NON-TENDER. BOWEL SOUNDS ARE NOTED NORMAL IN ALL QUADRANTS. SHE IS NOTED ON TELEMETRY WITH HEARTRATE 103 BPM THIS MORNING, SINUS RHYTHM. VITALS ON MORNING ROUNDS ARE 97.9-907-83-100%-138/60. SCD AND SILVER HOSE ARE NOTED BILATERALLY. CBC AND CMP WERE OBTAINED. ABNORMAL LAB VALUES INCLUDE THE FOLLOWING: WBC 11.2, RBC 2.97, HGB 8.1, HCT 24.7, POTASSIUM 3.2, BUN 19, GLUCOSE 108, AST 42, ALT 81. WE OBTAINED A KUB TO CHECK PLACEMENT OF IVC FILTER. IT REPORTED NO EVIDENCE FOR ACUTE ABDOMINAL OR PELVIC PATHOLOGY IDENTIFIED, ALSO IVC FILTER PROJECTS EXPECTED ORIENTATION WITH THE SUPERIOR MARGIN OF THE FILER AT THE LEVEL OF SUPERIOR ENDPLATE OF L2. WE HAVE CONSULTED FOR PORT A CATH PLACEMENT. WE HAVE ALSO CONSULTED FOR PLACEMENT OF PEG TUBE AT THE SAME TIME EGD. OTHERWISE, WE WILL CONTINUE WITH CURRENT PLAN OF CARE AND CONTINUE TO MONITOR PATIENT. WE WILL CHECK A CBC, CMP IN THE MORNING. - Past Medical Family Social History Past Med/Fam/Surg Hx: No changes since H&P Allergies: Allergies No Known Drug Allergies Allergy (Unverified 05/17/17 07:39) - Review of Systems ROS: No change since H&P - Vital Signs and I&O's Vital Signs: Temperature 97.6 F Pulse Rate [Left Brachial] 117 Respiratory Rate 24 Blood Pressure [Left Arm] 151/72 Blood Pressure [Right Arm] 140/71 Blood Pressure 138/68 O2 Sat by Pulse Oximetry 100 Intake and Output: Intake & Output 06/27/17 06/28/17 06/29/17 06/30/17 11:59 11:59 11:59 11:59 Intake Total 4441 403 3211 Output Total 1 Balance 4417 4033 3216 - Physical Exam Oriented: Normal Eyes: Normal Ear: Normal Nose: Normal Throat: Normal Respiratory: Normal Cardiovascular: Normal : Normal Auscultation: Bowel Sounds: Normal Palpation: Normal Tenderness: Normal Skin: Normal Musculoskeletal: Normal, Right, Arm, Leg (PARALYSIS ) Psychiatric: Normal Mood Description: Calm Affect: Normal Speech Pattern: Clear, Delayed - Laboratory and Diagnostics Result Diagrams: 06/29/17 03:40 06/29/17 03:40 Labs: 06/27/17 10:45 Blood Blood Culture - Preliminary 06/27/17 10:40 Blood Blood Culture - Preliminary 06/23/17 11:50 Blood Blood Culture - Final 06/23/17 11:35 Blood Blood Culture - Final Laboratory WBC 12.7 X10^3/uL (3.6-10.0) H 06/29/17 03:40 RBC 4.61 X10^6/uL (3.5-5.4) 06/29/17 03:40 Hgb 12.9 g/dL (12.0-16.0) D 06/29/17 03:40 Hct 38.8 % (36.0-47.0) 06/29/17 03:40 MCV 84.1 fL (80.0-100.0) 06/29/17 03:40 MCH 28.0 pg (27.0-34.0) 06/29/17 03:40 MCHC 33.3 g/dL (33.0-35.0) 06/29/17 03:40 RDW 16.0 % (11.6-16.5) 06/29/17 03:40 Plt Count 224 X10^3/uL (150.0-450.0) 06/29/17 03:40 Plt Count Comment Adequate (ADEQUATE) 06/29/17 03:40 MPV 7.9 fL (7.4-11.0) 06/29/17 03:40 Neut % 84.3 % (42.0-75.0) H 06/29/17 03:40 Lymph % 6.3 % (21.0-51.0) L 06/29/17 03:40 Hood % 5.8 % (0.0-13.0) 06/29/17 03:40 Eos % 2.3 % (0.9-2.9) 06/29/17 03:40 Baso % 1.3 % (0.2-1.0) H 06/29/17 03:40 Neut # 10.7 x10^3/uL (2.2-4.8) H 06/29/17 03:40 Lymph # 0.8 X10^3/uL (1.3-2.9) L 06/29/17 03:40 Hood # 0.7 x10^3/uL (0.3-0.8) 06/29/17 03:40 Eos # 0.3 x10^3/uL (0.0-0.2) H 06/29/17 03:40 Baso # 0.2 X10^3/uL (0.0-0.1) H 06/29/17 03:40 Absolute Nucleated RBC 0.1 /100WBC 06/29/17 03:40 Total Counted 100 06/29/17 03:40 Neutrophils % (Manual) 81 % (39-76) H 06/29/17 03:40 Band Neutrophils % 2 % (0-10) 06/29/17 03:40 Lymphocytes % (Manual) 9 % (13-43) L 06/29/17 03:40 Monocytes % (Manual) 5 % (4-9) 06/29/17 03:40 Eosinophils % (Manual) 3 % (0-6) 06/29/17 03:40 Nucleated RBCs 1 06/29/17 03:40 Plt Morphology Comment Normal (NORMAL) 06/29/17 03:40 RBC Morphology Normal (NORMAL) 06/29/17 03:40 Hypochromasia 1+ A 06/28/17 03:00 Sodium 138 mmol/L (136-145) 06/29/17 03:40 Corrected Sodium TNP 06/29/17 03:40 Potassium 3.2 mmol/L (3.5-5.1) L 06/29/17 03:40 Chloride 101 mmol/L (98-107) 06/29/17 03:40 Carbon Dioxide 27.8 mmol/L (21-32) 06/29/17 03:40 BUN 19 mg/dL (7-18) H 06/29/17 03:40 Creatinine 0.76 mg/dL (0.55-1.02) 06/29/17 03:40 Est GFR (MDRD) Af Amer > 60 (>60) 06/29/17 03:40 Est GFR (MDRD) Non-Af > 60 (>60) 06/29/17 03:40 Glucose 108 mg/dL (65-99) H 06/29/17 03:40 Calcium 9.4 mg/dL (8.5-10.1) 06/29/17 03:40 Corrected Calcium TNP 06/29/17 03:40 Total Bilirubin 0.90 mg/dL (0.2-1.0) 06/29/17 03:40 AST 42 Units/L (15-37) H 06/29/17 03:40 ALT 81 Units/L (12-78) H 06/29/17 03:40 Alkaline Phosphatase 83 Units/L (46-116) 06/29/17 03:40 Creatine Kinase 28 Units/L (26-192) 06/24/17 09:40 Total Protein 7.0 g/dL (6.4-8.2) 06/29/17 03:40 Albumin 3.6 g/dL (3.4-5.0) 06/29/17 03:40 Globulin 3.4 g/dL (2.5-4.5) 06/29/17 03:40 Albumin/Globulin Ratio 1.1 Ratio (1.1-2.1) 06/29/17 03:40 Blood Type A POSITIVE 06/28/17 10:30 Antibody Screen Negative 06/28/17 10:30 Crossmatch See Detail 06/28/17 10:30 - Plan (1) UTI (urinary tract infection) Status: Acute Qualifiers: Urinary tract infection type: site unspecified Hematuria presence: without hematuria Qualified Code(s): N39.0 - Urinary tract infection, site not specified Plan: LEVAQUIN 500MG IV DAILY, CONTINUE TO MONITOR (2) Altered mental status Status: Acute Qualifiers: Altered mental status type: disorientation Qualified Code(s): R41.0 - Disorientation, unspecified Plan: TREAT INFECTION, CONTINUE TO MONITOR (3) Tachycardia Status: Acute Plan: HYDRATE, TELEMETRY, CONTINUE TO MONITOR (4) Swallowing difficulty Status: Acute Qualifiers: Dysphagia type: unspecified Qualified Code(s): R13.10 - Dysphagia, unspecified Plan: SWALLOWING STUDY, MECHANICAL SOFT DIET WITH NECTAR THICK LIQUIDS, SUCTION NEEDED, CONTINUE TO MONITOR (5) Hypoalbuminemia due to protein-calorie malnutrition Status: Acute Plan: PERIPHERAL TPN, ALBUMIN 25% DAILY, CONTINUE TO MONITOR (6) GERD (gastroesophageal reflux disease) Status: Acute Qualifiers: Esophagitis presence: esophagitis presence not specified Qualified Code(s) : K21.9 - Gastro-esophageal reflux disease without esophagitis Plan: PEPCID 20MG IV BID, CONTINUE TO MONITOR (7) Elevated liver enzymes Status: Acute Plan: LIVER US, CONTINUE TO MONITOR
[2017-06-29] MEDS: D5W 1000 ML IV 1,000 ML IV SCH (17:15)
[2017-06-29] MEDS: PROCALAMINE 3 % 1,000 ML IV SCH (18:40)
[2017-06-29] MEDS: ZOCOR TAB 40 MG PO SCH (21:34)
[2017-06-29] MEDS: SINGULAIR TAB 10 MG PO SCH (21:34)
[2017-06-29] MEDS: COLACE CAP 100 MG PO SCH (21:44)
[2017-06-29] MEDS: MILK OF MAGNESIA PO SCH (21:44)
[2017-06-29] MEDS: FORTAZ or TAZICEF INJ 2 GM in NS 50 ML IV 50 ML IV SCH (21:44)
[2017-06-30] MEDS ORDERED: NS 50 ML IV 50 ML IV ONE (05:15)
[2017-06-30] MEDS ORDERED: FORTAZ or TAZICEF INJ ONE (05:15)
[2017-06-30] MEDS: FORTAZ or TAZICEF INJ 2 GM in NS 50 ML IV 50 ML IV SCH ×3 (05:50→21:10)
[2017-06-30 06:05] LABS: BASOPHILS % (AUTO) 0.4 % (0.2-1.0); EOSINOPHILS # (AUTO) 0.4 x10^3/uL (0.0-0.2); EOSINOPHILS % (AUTO) 3.5 % (0.9-2.9); HEMATOCRIT 38.8 % (36.0-47.0); HEMOGLOBIN 13.1 g/dL (12.0-16.0); LYMPHOCYTES # (AUTO) 0.7 X10^3/uL (1.3-2.9); LYMPHOCYTES % (AUTO) 6.3 % (21.0-51.0); MEAN CORPUSCULAR HGB CONC 33.6 g/dL (33.0-35.0); MEAN CORPUSCULAR VOLUME 83.2 fL (80.0-100.0); MEAN PLATELET VOLUME 7.9 fL (7.4-11.0); MONOCYTES # (AUTO) 0.8 x10^3/uL (0.3-0.8); MONOCYTES % (AUTO) 7.3 % (0.0-13.0); NEUTROPHILS # (AUTO) 8.6 x10^3/uL (2.2-4.8); NEUTROPHILS % (AUTO) 82.5 % (42.0-75.0); PLATELET COUNT 267 X10^3/uL (150.0-450.0); RED BLOOD COUNT 4.66 X10^6/uL (3.5-5.4); RED CELL DISTRIBUTION WIDTH 16.3 % (11.6-16.5); WHITE BLOOD COUNT 10.5 X10^3/uL (3.6-10.0)
[2017-06-30 06:13] LABS: IRON 29 ug/dL (50-175)
[2017-06-30 06:18] LABS: ALANINE AMINOTRANSFERASE 62 Units/L (12-78); ALBUMIN 3.7 g/dL (3.4-5.0); ALKALINE PHOSPHATASE 73 Units/L (46-116); ASPARTATE AMINO TRANSFERASE 41 Units/L (15-37); BLOOD UREA NITROGEN 19 mg/dL (7-18); CARBON DIOXIDE 26.9 mmol/L (21-32); CHLORIDE 98 mmol/L (98-107); COR NA(FOR HYPERGLY) 135 mmol/L (136-145); CREATININE 0.71 mg/dL (0.55-1.02); SODIUM 135 mmol/L (136-145); eGFR BLACK RACES > 60 (>60); eGFR NON BLACK RACES > 60 (>60)
[2017-06-30] MEDS: K-RIDER 10 MEQ/NS 100 ML 10 MEQ/100 ML BAG IV PRN (06:36)
[2017-06-30] MEDS ORDERED: FENTANYL INJ 100 mcg ONE (08:16)
[2017-06-30] MEDS ORDERED: XYLOCAINE 1% and EPINEPHRINE 1:100,000 ONE (08:17)
[2017-06-30] MEDS ORDERED: MARCAINE 0.25% INJ ONE (08:17)
[2017-06-30] MEDS ORDERED: NS 50 ML IV + SPIKE MINIBAG* 50 ML IV ONE (08:19)
[2017-06-30] MEDS ORDERED: NS 1000 ML 1,000 ML ONE (08:20)
[2017-06-30] MEDS ORDERED: ANCEF VIAL 1 GM ONE (08:20)
[2017-06-30] MEDS ORDERED: NORCO 5/325 MG TAB PO PRN (09:55)
--- NOTE | 2017-06-30 10:11 | OR.GENERIC ---
Post-Op Note Generic - Post-Op Note Operative Report: Procedure Note June 30, 2017 Pre-Operative Diagnosis: Phlebosclerosis. Post-Operative Diagnosis: Phlebosclerosis. Procedure: Placement of left subclavian port-a-cath. Surgeon: Emory Fitzpatrick MD. Associate Field Service Engineer: Antonio Mckenzie CRNA. Specimens: None. Estimated blood loss: Minimal. Complications: None. Summary: The patient is a 77 year old female with frequent hospitalizations. The patient developed phlebosclerosis. Surgery was consulted for port-a-cath placement. The risk and benefits of the procedure including difficulty with anesthesia, bleeding, infection, cava thrombosis, DVT, PE, as well as pneumothorax were discussed with the patient. The patient understood these risks and requested the procedure. On June 30, 2017, the patients left neck and chest were prepped with Chloraprep and draped in the usual sterile fashion. The skin and subcutaneous tissue overlying the left internal jugular vein was anesthetized using local anesthetic. Attempts at cannulating the left internal jugular vein were not successful under ultrasound guidance. Therefore, the left subclavian vein was cannulated and a wire placed into the superior vena cava. The location of the wire was verified using fluoroscopy. A site was selected on the left chest for the port-a-cath hub. The skin was anesthetized. The skin was incised sharply. A pocket was made using blunt dissection and electrocautery. The track between the cannulation site and the left chest incision was anesthetized. A skin carlos eduardo was made at the cannulation site. The subcutaneous tissue was dilated serially using the Seldinger technique. Next, a dilator and sheath were advanced into the left subclavian vein. The wire and dilator were removed. The catheter was advanced through the sheath to the atriocaval junction. The sheath was peeled away and discarded. The catheter was tunneled to the left chest incision and trimmed to the appropriate length. The catheter along with locking flange was connected to the port-a-cath hub. The hub was sewn to the pectoralis fascia using 3-0 Prolene x 2. The port-a-cath maria elena and flushed well. The tip of the catheter was verified at the atriocaval junction. The dermis at the left chest incision and cannulation site was re- approximated using inverted, interrupted 3-0 Vicryl sutures. The skin edges were closed using a running 4-0 Monocryl. Benzoin and steri-strips were placed. A sterile dressing was placed. The patient tolerated the procedure well. There were no complications.
--- NOTE | 2017-06-30 10:40 | RAD ---
HISTORY: Postop Port-A-Cath placement Study: Portable AP chest Comparison: Yesterday Findings: The trachea is midline. The cardiac silhouette is normal. There is a new Port-A-Cath via the left castro bclavian vein with the tip in the distal SVC.. There is no pneumothorax or pleural effusion. The chito gs are grossly clear.. The bony thorax is unremarkable. IMPRESSION: 1. Satisfactory Port-A-Cath placement and portable chest Reported By:
[2017-06-30] MEDS ORDERED: NS IV SCH ×2 (11:00)
[2017-06-30] MEDS ORDERED: POTASSIUM CHLORIDE IV SCH ×2 (11:00)
[2017-06-30] MEDS: PEPCID 20 MG IV PREMIX* 20 MG/50 ML BAG IV SCH ×2 (11:25→21:09)
[2017-06-30] MEDS: ALBUMIN HUMAN 25%- 100ML 100 ML IV SCH (11:25)
[2017-06-30] MEDS: ASPIRIN 81 MG CHEWTAB PO SCH (11:25)
[2017-06-30] MEDS: ZYLOPRIM PO SCH (11:26)
[2017-06-30] MEDS: SYNTHROID 50 mcg TAB PO SCH (11:26)
[2017-06-30] MEDS: VITAMIN B-12 PO SCH (11:26)
[2017-06-30] MEDS: PROTONIX INJ 40 MG VIAL IVP SCH ×2 (11:26→21:10)
[2017-06-30] MEDS: LEVAQUIN PREMIX IV 500 MG 500 MG/100 ML BAG IV SCH (11:27)
[2017-06-30] MEDS: NS + KCL 20 MEQ/L 1,000 ML IV SCH (11:30)
--- NOTE | 2017-06-30 11:37 | PCM.PROG ---
Progress Note - Progress Note for Day of Date: 06/29/17 - Subjective Subjective: WAS ADMITTED FOR UROSEPSIS AND ALTERED MENTAL STATUS. SHE IS ALERT AND ORIENTED, LYING IN BED ON MORNING ROUNDS. PATIENTS DAUGHTER IS AT BEDSIDE. PATIENT IS NOTED WITH NO COMPLAINTS ON MORNING ROUNDS. SHE CONTINUES WITH WEAKNESS. ON EXAMINATION, LUNGS ARE NOTED CLEAR TO AUSCULTATION, BILATERALLY. ABDOMEN IS SOFT, FLAT, AND NON-TENDER. BOWEL SOUNDS ARE NOTED NORMAL IN ALL QUADRANTS. SHE IS NOTED ON TELEMETRY WITH HEARTRATE 114 BPM THIS MORNING, SINUS RHYTHM. VITALS ON MORNING ROUNDS ARE 97.7-908-72-100%-162/86. SCD AND SILVER HOSE ARE NOTED BILATERALLY. CBC AND CMP WERE OBTAINED. ABNORMAL LAB VALUES INCLUDE THE FOLLOWING: WBC 12.7, POTASSIUM 3.2, BUN 19, GLUCOSE 108, AST 42, ALT 81. WE OBTAINED A CHEST XRAY. IT REPORTED MINIMAL CARDIOMEGALY WITHOUT CHF. PATIENT IS SCHEDULED FOR PLACEMENT OF PORT A CATH TOMORROW. SHE IS ALSO SCHEDULED FOR PEG TUBE AND EGD ON WEDNESDAY. OTHERWISE, WE WILL CONTINUE WITH CURRENT PLAN OF CARE AND CONTINUE TO MONITOR PATIENT. WE WILL CHECK A CBC, CMP IN THE MORNING. - Past Medical Family Social History Past Med/Fam/Surg Hx: No changes since H&P Allergies: Allergies No Known Drug Allergies Allergy (Unverified 05/17/17 07:39) - Review of Systems ROS: No change since H&P - Vital Signs and I&O's Vital Signs: Temperature 98.9 F Pulse Rate [Left Brachial] 102 Respiratory Rate 18 Blood Pressure [Left Arm] 157/77 Blood Pressure [Right Arm] 140/71 Blood Pressure 138/68 O2 Sat by Pulse Oximetry 100 Intake and Output: Intake & Output 06/27/17 06/28/17 06/29/17 06/30/17 11:59 11:59 11:59 11:59 Intake Total 4434 4035 0175 4843 Output Total 1 Balance 4422 4036 9014 8272 - Physical Exam Oriented: Normal Eyes: Normal Ear: Normal Nose: Normal Throat: Normal Respiratory: Normal Cardiovascular: Normal : Normal Auscultation: Bowel Sounds: Normal Palpation: Normal Tenderness: Normal Skin: Normal Musculoskeletal: Normal, Right, Arm, Leg (PARALYSIS ) Psychiatric: Normal Mood Description: Calm Affect: Normal Speech Pattern: Clear, Delayed - Laboratory and Diagnostics Result Diagrams: 06/30/17 05:35 06/30/17 05:35 Labs: 06/27/17 10:45 Blood Blood Culture - Preliminary 06/27/17 10:40 Blood Blood Culture - Preliminary 06/23/17 11:50 Blood Blood Culture - Final 06/23/17 11:35 Blood Blood Culture - Final Laboratory WBC 10.5 X10^3/uL (3.6-10.0) H 06/30/17 05:35 RBC 4.66 X10^6/uL (3.5-5.4) 06/30/17 05:35 Hgb 13.1 g/dL (12.0-16.0) 06/30/17 05:35 Hct 38.8 % (36.0-47.0) 06/30/17 05:35 MCV 83.2 fL (80.0-100.0) 06/30/17 05:35 MCH 28.0 pg (27.0-34.0) 06/30/17 05:35 MCHC 33.6 g/dL (33.0-35.0) 06/30/17 05:35 RDW 16.3 % (11.6-16.5) 06/30/17 05:35 Plt Count 267 X10^3/uL (150.0-450.0) 06/30/17 05:35 Plt Count Comment Adequate (ADEQUATE) 06/29/17 03:40 MPV 7.9 fL (7.4-11.0) 06/30/17 05:35 Neut % 82.5 % (42.0-75.0) H 06/30/17 05:35 Lymph % 6.3 % (21.0-51.0) L 06/30/17 05:35 [place] % 7.3 % (0.0-13.0) 06/30/17 05:35 Eos % 3.5 % (0.9-2.9) H 06/30/17 05:35 Baso % 0.4 % (0.2-1.0) 06/30/17 05:35 Neut # 8.6 x10^3/uL (2.2-4.8) H 06/30/17 05:35 Lymph # 0.7 X10^3/uL (1.3-2.9) L 06/30/17 05:35 [place] # 0.8 x10^3/uL (0.3-0.8) 06/30/17 05:35 Eos # 0.4 x10^3/uL (0.0-0.2) H 06/30/17 05:35 Baso # 0.0 X10^3/uL (0.0-0.1) 06/30/17 05:35 Absolute Nucleated RBC 0.1 /100WBC 06/30/17 05:35 Total Counted 100 06/29/17 03:40 Neutrophils % (Manual) 81 % (39-76) H 06/29/17 03:40 Band Neutrophils % 2 % (0-10) 06/29/17 03:40 Lymphocytes % (Manual) 9 % (13-43) L 06/29/17 03:40 Monocytes % (Manual) 5 % (4-9) 06/29/17 03:40 Eosinophils % (Manual) 3 % (0-6) 06/29/17 03:40 Nucleated RBCs 1 06/29/17 03:40 Plt Morphology Comment Normal (NORMAL) 06/29/17 03:40 RBC Morphology Normal (NORMAL) 06/29/17 03:40 Hypochromasia 1+ A 06/28/17 03:00 Sodium 135 mmol/L (136-145) L 06/30/17 05:35 Corrected Sodium 135 mmol/L (136-145) L 06/30/17 05:35 Potassium 3.2 mmol/L (3.5-5.1) L 06/30/17 05:35 Chloride 98 mmol/L (98-107) 06/30/17 05:35 Carbon Dioxide 26.9 mmol/L (21-32) 06/30/17 05:35 BUN 19 mg/dL (7-18) H 06/30/17 05:35 Creatinine 0.71 mg/dL (0.55-1.02) 06/30/17 05:35 Est GFR (MDRD) Af Amer > 60 (>60) 06/30/17 05:35 Est GFR (MDRD) Non-Af > 60 (>60) 06/30/17 05:35 Glucose 111 mg/dL (65-99) H 06/30/17 05:35 Calcium 9.0 mg/dL (8.5-10.1) 06/30/17 05:35 Corrected Calcium TNP 06/30/17 05:35 Iron 29 ug/dL (50-175) L 06/30/17 05:35 Ferritin 290 ng/mL (8-252) H 06/30/17 05:35 Total Bilirubin 0.90 mg/dL (0.2-1.0) 06/30/17 05:35 AST 41 Units/L (15-37) H 06/30/17 05:35 ALT 62 Units/L (12-78) 06/30/17 05:35 Alkaline Phosphatase 73 Units/L (46-116) 06/30/17 05:35 Creatine Kinase 28 Units/L (26-192) 06/24/17 09:40 Total Protein 7.0 g/dL (6.4-8.2) 06/30/17 05:35 Albumin 3.7 g/dL (3.4-5.0) 06/30/17 05:35 Globulin 3.3 g/dL (2.5-4.5) 06/30/17 05:35 Albumin/Globulin Ratio 1.1 Ratio (1.1-2.1) 06/30/17 05:35 Blood Type A POSITIVE 06/28/17 10:30 Antibody Screen Negative 06/28/17 10:30 Crossmatch See Detail 06/28/17 10:30 - Plan (1) UTI (urinary tract infection) Status: Acute Qualifiers: Urinary tract infection type: site unspecified Hematuria presence: without hematuria Qualified Code(s): N39.0 - Urinary tract infection, site not specified Plan: LEVAQUIN 500MG IV DAILY, CONTINUE TO MONITOR (2) Altered mental status Status: Acute Qualifiers: Altered mental status type: disorientation Qualified Code(s): R41.0 - Disorientation, unspecified Plan: TREAT INFECTION, CONTINUE TO MONITOR (3) Tachycardia Status: Acute Plan: HYDRATE, TELEMETRY, CONTINUE TO MONITOR (4) Swallowing difficulty Status: Acute Qualifiers: Dysphagia type: unspecified Qualified Code(s): R13.10 - Dysphagia, unspecified Plan: SWALLOWING STUDY, MECHANICAL SOFT DIET WITH NECTAR THICK LIQUIDS, SUCTION NEEDED, CONTINUE TO MONITOR (5) Hypoalbuminemia due to protein-calorie malnutrition Status: Acute Plan: PERIPHERAL TPN, ALBUMIN 25% DAILY, CONTINUE TO MONITOR (6) GERD (gastroesophageal reflux disease) Status: Acute Qualifiers: Esophagitis presence: esophagitis presence not specified Qualified Code(s) : K21.9 - Gastro-esophageal reflux disease without esophagitis Plan: PEPCID 20MG IV BID, CONTINUE TO MONITOR (7) Elevated liver enzymes Status: Acute Plan: LIVER US, CONTINUE TO MONITOR
[2017-06-30] MEDS: VITAMIN D3 PO SCH (12:14)
[2017-06-30] MEDS: REMERON PO SCH (12:14)
[2017-06-30] MEDS: MAXZIDE 75/50 MG PO SCH (12:14)
[2017-06-30] MEDS ORDERED: DIPRIVAN VIAL ONE (16:30)
[2017-06-30] MEDS ORDERED: XYLOCAINE 2 % (PLAIN) ONE (16:30)
[2017-06-30] MEDS ORDERED: VERSED ONE (16:30)
--- NOTE | 2017-06-30 18:33 | PCM.PROG ---
Progress Note - Progress Note for Day of Date: 06/30/17 - Subjective Subjective: WAS ADMITTED FOR UROSEPSIS AND ALTERED MENTAL STATUS. SHE IS ALERT AND ORIENTED, LYING IN BED ON MORNING ROUNDS. PATIENTS DAUGHTER IS AT BEDSIDE. PATIENT DOES NOT VOICE ANY COMPLAINTS UPON ROUNDS. PATIENT DAUGHTER REPORTS THAT PATIENT IS BEGINNING TO MOVE LEFT ARM AND LEG MORE AND HAS BEEN MORE ALERT. DR.IRFAN LOGANWED UP WITH PATIENT YESTERDAY AND ORDERED LABS. ON EXAMINATION, LUNGS ARE CLEAR TO AUSCULTATION. ABDOMEN IS SOFT, FLAT, AND NON-TENDER. BOWEL SOUNDS ARE NOTED NORMAL IN ALL QUADRANTS. PATIENT IS ON TELEMETRY WITH SINUS RHYTHM AND HEARTRATE OF 93 BPM NOTED. A CBC, CMP, AND CHEST XRAY WERE OBTAINED. ABNORMAL LAB VALUES INCLUDE THE FOLLOWING: WBC 10.5, SODIUM 135, POTASSIUM 3.2, BUN 19, GLUCOSE 111, IRON 29, FERRITIN 290, AST 41. DUSTIN PANEL AND HEPATITIS PANEL ARE PENDING RESULTS. CHEST XRAY REPORTED LUNGS CLEAR. PATIENT IS SCHEDULED FOR PLACEMENT OF A PORT A CATH TODAY. SHE IS ALSO SCHEDULED FOR A EGD AND PEG TUBE TOMORROW. PATIENTS POTASSIUM HAS REMAINED LOW FOR SEVERAL DAYS. WE WILL START NS WITH 20MEQ KCL AT 100ML/HR. OTHERWISE, WE WILL CONTINUE WITH CURRENT PLAN OF CARE. WE PLAN TO OBTAIN A CBC, CMP, AND CHEST XRAY IN THE MORNING AND CONTINUE TO MONITOR PATIENT. - Past Medical Family Social History Past Med/Fam/Surg Hx: No changes since H&P Allergies: Allergies No Known Drug Allergies Allergy (Unverified 05/17/17 07:39) - Review of Systems ROS: No change since H&P - Vital Signs and I&O's Vital Signs: Temperature 98.0 F Pulse Rate [Left Brachial] 104 Respiratory Rate 18 Blood Pressure [Left Arm] 132/63 Blood Pressure [Right Arm] 140/71 Blood Pressure 138/68 O2 Sat by Pulse Oximetry 100 Intake and Output: Intake & Output 06/28/17 06/29/17 06/30/17 07/01/17 11:59 11:59 11:59 11:59 Intake Total 4038 3216 3546 1022 Output Total 1 Balance 4037 3216 3546 1022 - Physical Exam Oriented: Normal Eyes: Normal Ear: Normal Nose: Normal Throat: Normal Respiratory: Normal Cardiovascular: Normal : Normal Auscultation: Bowel Sounds: Normal Palpation: Normal Tenderness: Normal Skin: Normal Musculoskeletal: Normal, Right, Arm, Leg (PARALYSIS ) Psychiatric: Normal Mood Description: Calm Affect: Normal Speech Pattern: Clear, Delayed - Laboratory and Diagnostics Result Diagrams: 06/30/17 05:35 06/30/17 05:35 Labs: 06/27/17 10:45 Blood Blood Culture - Preliminary 06/27/17 10:40 Blood Blood Culture - Preliminary 06/23/17 11:50 Blood Blood Culture - Final 06/23/17 11:35 Blood Blood Culture - Final Laboratory WBC 10.5 X10^3/uL (3.6-10.0) H 06/30/17 05:35 RBC 4.66 X10^6/uL (3.5-5.4) 06/30/17 05:35 Hgb 13.1 g/dL (12.0-16.0) 06/30/17 05:35 Hct 38.8 % (36.0-47.0) 06/30/17 05:35 MCV 83.2 fL (80.0-100.0) 06/30/17 05:35 MCH 28.0 pg (27.0-34.0) 06/30/17 05:35 MCHC 33.6 g/dL (33.0-35.0) 06/30/17 05:35 RDW 16.3 % (11.6-16.5) 06/30/17 05:35 Plt Count 267 X10^3/uL (150.0-450.0) 06/30/17 05:35 Plt Count Comment Adequate (ADEQUATE) 06/29/17 03:40 MPV 7.9 fL (7.4-11.0) 06/30/17 05:35 Neut % 82.5 % (42.0-75.0) H 06/30/17 05:35 Lymph % 6.3 % (21.0-51.0) L 06/30/17 05:35 [place] % 7.3 % (0.0-13.0) 06/30/17 05:35 Eos % 3.5 % (0.9-2.9) H 06/30/17 05:35 Baso % 0.4 % (0.2-1.0) 06/30/17 05:35 Neut # 8.6 x10^3/uL (2.2-4.8) H 06/30/17 05:35 Lymph # 0.7 X10^3/uL (1.3-2.9) L 06/30/17 05:35 [place] # 0.8 x10^3/uL (0.3-0.8) 06/30/17 05:35 Eos # 0.4 x10^3/uL (0.0-0.2) H 06/30/17 05:35 Baso # 0.0 X10^3/uL (0.0-0.1) 06/30/17 05:35 Absolute Nucleated RBC 0.1 /100WBC 06/30/17 05:35 Total Counted 100 06/29/17 03:40 Neutrophils % (Manual) 81 % (39-76) H 06/29/17 03:40 Band Neutrophils % 2 % (0-10) 06/29/17 03:40 Lymphocytes % (Manual) 9 % (13-43) L 06/29/17 03:40 Monocytes % (Manual) 5 % (4-9) 06/29/17 03:40 Eosinophils % (Manual) 3 % (0-6) 06/29/17 03:40 Nucleated RBCs 1 06/29/17 03:40 Plt Morphology Comment Normal (NORMAL) 06/29/17 03:40 RBC Morphology Normal (NORMAL) 06/29/17 03:40 Hypochromasia 1+ A 06/28/17 03:00 Sodium 135 mmol/L (136-145) L 06/30/17 05:35 Corrected Sodium 135 mmol/L (136-145) L 06/30/17 05:35 Potassium 3.2 mmol/L (3.5-5.1) L 06/30/17 05:35 Chloride 98 mmol/L (98-107) 06/30/17 05:35 Carbon Dioxide 26.9 mmol/L (21-32) 06/30/17 05:35 BUN 19 mg/dL (7-18) H 06/30/17 05:35 Creatinine 0.71 mg/dL (0.55-1.02) 06/30/17 05:35 Est GFR (MDRD) Af Amer > 60 (>60) 06/30/17 05:35 Est GFR (MDRD) Non-Af > 60 (>60) 06/30/17 05:35 Glucose 111 mg/dL (65-99) H 06/30/17 05:35 Calcium 9.0 mg/dL (8.5-10.1) 06/30/17 05:35 Corrected Calcium TNP 06/30/17 05:35 Iron 29 ug/dL (50-175) L 06/30/17 05:35 Ferritin 290 ng/mL (8-252) H 06/30/17 05:35 Total Bilirubin 0.90 mg/dL (0.2-1.0) 06/30/17 05:35 AST 41 Units/L (15-37) H 06/30/17 05:35 ALT 62 Units/L (12-78) 06/30/17 05:35 Alkaline Phosphatase 73 Units/L (46-116) 06/30/17 05:35 Creatine Kinase 28 Units/L (26-192) 06/24/17 09:40 Total Protein 7.0 g/dL (6.4-8.2) 06/30/17 05:35 Albumin 3.7 g/dL (3.4-5.0) 06/30/17 05:35 Globulin 3.3 g/dL (2.5-4.5) 06/30/17 05:35 Albumin/Globulin Ratio 1.1 Ratio (1.1-2.1) 06/30/17 05:35 Blood Type A POSITIVE 06/28/17 10:30 Antibody Screen Negative 06/28/17 10:30 Crossmatch See Detail 06/28/17 10:30 - Plan (1) UTI (urinary tract infection) Status: Acute Qualifiers: Urinary tract infection type: site unspecified Hematuria presence: without hematuria Qualified Code(s): N39.0 - Urinary tract infection, site not specified Plan: LEVAQUIN 500MG IV DAILY, CONTINUE TO MONITOR (2) Altered mental status Status: Acute Qualifiers: Altered mental status type: disorientation Qualified Code(s): R41.0 - Disorientation, unspecified Plan: TREAT INFECTION, CONTINUE TO MONITOR (3) Tachycardia Status: Acute Plan: HYDRATE, TELEMETRY, CONTINUE TO MONITOR (4) Swallowing difficulty Status: Acute Qualifiers: Dysphagia type: unspecified Qualified Code(s): R13.10 - Dysphagia, unspecified Plan: SWALLOWING STUDY, MECHANICAL SOFT DIET WITH NECTAR THICK LIQUIDS, SUCTION NEEDED, CONTINUE TO MONITOR (5) Hypoalbuminemia due to protein-calorie malnutrition Status: Acute Plan: PERIPHERAL TPN, ALBUMIN 25% DAILY, CONTINUE TO MONITOR (6) GERD (gastroesophageal reflux disease) Status: Acute Qualifiers: Esophagitis presence: esophagitis presence not specified Qualified Code(s) : K21.9 - Gastro-esophageal reflux disease without esophagitis Plan: PEPCID 20MG IV BID, CONTINUE TO MONITOR (7) Elevated liver enzymes Status: Acute Plan: LIVER US, CONTINUE TO MONITOR
[2017-06-30] MEDS: COLACE CAP 100 MG PO SCH (21:09)
[2017-06-30] MEDS: MILK OF MAGNESIA PO SCH (21:09)
[2017-06-30] MEDS: SINGULAIR TAB 10 MG PO SCH (21:10)
[2017-06-30] MEDS: ZOCOR TAB 40 MG PO SCH (21:10)
[2017-06-30] MEDS: PROCALAMINE 3 % 1,000 ML IV SCH (21:18)
[2017-07-01] MEDS: NS + KCL 20 MEQ/L 1,000 ML IV SCH ×3 (02:10→21:05)
[2017-07-01] MEDS: FORTAZ or TAZICEF INJ 2 GM in NS 50 ML IV 50 ML IV SCH ×3 (05:25→21:06)
[2017-07-01 06:35] LABS: ALANINE AMINOTRANSFERASE 40 Units/L (12-78); ALBUMIN 3.6 g/dL (3.4-5.0); ALKALINE PHOSPHATASE 63 Units/L (46-116); ASPARTATE AMINO TRANSFERASE 25 Units/L (15-37); BLOOD UREA NITROGEN 15 mg/dL (7-18); CARBON DIOXIDE 26.6 mmol/L (21-32); CHLORIDE 103 mmol/L (98-107); SODIUM 139 mmol/L (136-145); TOTAL PROTEIN 6.5 g/dL (6.4-8.2); eGFR BLACK RACES > 60 (>60); eGFR NON BLACK RACES > 60 (>60)
[2017-07-01 06:41] LABS: BASOPHILS # (AUTO) 0.1 X10^3/uL (0.0-0.1); EOSINOPHILS # (AUTO) 0.3 x10^3/uL (0.0-0.2); EOSINOPHILS % (AUTO) 2.6 % (0.9-2.9); HEMOGLOBIN 12.4 g/dL (12.0-16.0); LYMPHOCYTES # (AUTO) 0.8 X10^3/uL (1.3-2.9); LYMPHOCYTES % (AUTO) 7.3 % (21.0-51.0); MEAN CORPUSCULAR HEMOGLOBIN 28.4 pg (27.0-34.0); MEAN CORPUSCULAR HGB CONC 33.6 g/dL (33.0-35.0); MEAN CORPUSCULAR VOLUME 84.6 fL (80.0-100.0); MEAN PLATELET VOLUME 8.1 fL (7.4-11.0); MONOCYTES # (AUTO) 0.9 x10^3/uL (0.3-0.8); MONOCYTES % (AUTO) 8.6 % (0.0-13.0); NEUTROPHILS # (AUTO) 8.5 x10^3/uL (2.2-4.8); NEUTROPHILS % (AUTO) 80.5 % (42.0-75.0); PLATELET COUNT 189 X10^3/uL (150.0-450.0); RED BLOOD COUNT 4.37 X10^6/uL (3.5-5.4); RED CELL DISTRIBUTION WIDTH 16.6 % (11.6-16.5); WHITE BLOOD COUNT 10.5 X10^3/uL (3.6-10.0)
[2017-07-01 07:21] LABS: PLATELET MORPHOLOGY COMMENT NORMAL (NORMAL)
[2017-07-01] MEDS: LEVAQUIN PREMIX IV 500 MG 500 MG/100 ML BAG IV SCH (08:33)
[2017-07-01] MEDS: PROTONIX INJ 40 MG VIAL IVP SCH ×2 (08:33→21:08)
[2017-07-01] MEDS: ALBUMIN HUMAN 25%- 100ML 100 ML IV SCH (08:33)
[2017-07-01] MEDS: PEPCID 20 MG IV PREMIX* 20 MG/50 ML BAG IV SCH ×2 (08:34→21:07)
[2017-07-01] MEDS ORDERED: NS 1000 ML 1,000 ML ONE (11:03)
--- NOTE | 2017-07-01 11:11 | PCM.PROG ---
Progress Note - Progress Note for Day of Date: 07/01/17 - Subjective Subjective: WAS ADMITTED FOR UROSEPSIS AND ALTERED MENTAL STATUS. SHE IS ALERT AND ORIENTED, LYING IN BED ON MORNING ROUNDS. PATIENTS DAUGHTER IS AT BEDSIDE. PATIENT DAUGHTER REPORTS THAT PATIENT IS HAS BEEN COMPLAINING OF LEFT LEG PAIN. LEFT LEG IS NOTED TO BE EDEMATOUS. PHYSICAL THERAPY REPORTS THAT PATIENT IS NOT PUTTING MUCH WEIGHT ON LEFT LEG. ON EXAMINATION, LUNGS ARE CLEAR TO AUSCULTATION. ABDOMEN IS SOFT, FLAT, AND NON-TENDER. BOWEL SOUNDS ARE NOTED NORMAL IN ALL QUADRANTS. PATIENT IS ON TELEMETRY WITH SINUS RHYTHM AND HEARTRATE OF 91 BPM NOTED. A CBC AND CMP WERE OBTAINED. ABNORMAL LAB VALUES INCLUDE THE FOLLOWING: WBC 10.5, SODIUM 139, POTASSIUM 3.4, GLUCOSE 109. DUSTIN PANEL AND HEPATITIS PANEL ARE PENDING RESULTS. PATIENT HAD PORT A CATH PLACED YESTERDAY. SHE IS SCHEDULED FOR AN EGD AND PEG TUBE PLACEMENT TODAY. WE WILL OBTAIN A BILATERAL VENOUS DOPPLER TODAY FOR THE LEG PAIN. OTHERWISE, WE WILL CONTINUE WITH CURRENT PLAN OF CARE. WE PLAN TO OBTAIN A CBC, CMP, AND CHEST XRAY IN THE MORNING AND CONTINUE TO MONITOR PATIENT. - Past Medical Family Social History Past Med/Fam/Surg Hx: No changes since H&P Allergies: Allergies No Known Drug Allergies Allergy (Unverified 05/17/17 07:39) - Review of Systems ROS: No change since H&P - Vital Signs and I&O's Vital Signs: Temperature 98.0 F Pulse Rate [Left Brachial] 99 Respiratory Rate 16 Blood Pressure [Left Arm] 122/58 Blood Pressure [Right Arm] 140/71 Blood Pressure 138/68 O2 Sat by Pulse Oximetry 100 Intake and Output: Intake & Output 06/28/17 06/29/17 06/30/17 07/01/17 11:59 11:59 11:59 11:59 Intake Total 4038 3216 3546 2808 Output Total 1 Balance 4037 3216 3546 2808 - Physical Exam Oriented: Normal Eyes: Normal Ear: Normal Nose: Normal Throat: Normal Respiratory: Normal Cardiovascular: Normal : Normal Auscultation: Bowel Sounds: Normal Palpation: Normal Tenderness: Normal Skin: Normal Musculoskeletal: Normal, Right, Arm, Leg (PARALYSIS ) Psychiatric: Normal Mood Description: Calm Affect: Normal Speech Pattern: Clear, Appropriate, Delayed - Laboratory and Diagnostics Result Diagrams: 07/01/17 05:15 07/01/17 05:15 Labs: 06/27/17 10:45 Blood Blood Culture - Preliminary 06/27/17 10:40 Blood Blood Culture - Preliminary 06/23/17 11:50 Blood Blood Culture - Final 06/23/17 11:35 Blood Blood Culture - Final Laboratory WBC 10.5 X10^3/uL (3.6-10.0) H 07/01/17 05:15 RBC 4.37 X10^6/uL (3.5-5.4) 07/01/17 05:15 Hgb 12.4 g/dL (12.0-16.0) 07/01/17 05:15 Hct 37.0 % (36.0-47.0) 07/01/17 05:15 MCV 84.6 fL (80.0-100.0) 07/01/17 05:15 MCH 28.4 pg (27.0-34.0) 07/01/17 05:15 MCHC 33.6 g/dL (33.0-35.0) 07/01/17 05:15 RDW 16.6 % (11.6-16.5) H 07/01/17 05:15 Plt Count 189 X10^3/uL (150.0-450.0) 07/01/17 05:15 Plt Count Comment Adequate (ADEQUATE) 07/01/17 05:15 MPV 8.1 fL (7.4-11.0) 07/01/17 05:15 Neut % 80.5 % (42.0-75.0) H 07/01/17 05:15 Lymph % 7.3 % (21.0-51.0) L 07/01/17 05:15 Williamson % 8.6 % (0.0-13.0) 07/01/17 05:15 Eos % 2.6 % (0.9-2.9) 07/01/17 05:15 Baso % 1.0 % (0.2-1.0) 07/01/17 05:15 Neut # 8.5 x10^3/uL (2.2-4.8) H 07/01/17 05:15 Lymph # 0.8 X10^3/uL (1.3-2.9) L 07/01/17 05:15 Williamson # 0.9 x10^3/uL (0.3-0.8) H 07/01/17 05:15 Eos # 0.3 x10^3/uL (0.0-0.2) H 07/01/17 05:15 Baso # 0.1 X10^3/uL (0.0-0.1) 07/01/17 05:15 Absolute Nucleated RBC 0.0 /100WBC 07/01/17 05:15 Total Counted 100 06/29/17 03:40 Neutrophils % (Manual) 81 % (39-76) H 06/29/17 03:40 Band Neutrophils % 2 % (0-10) 06/29/17 03:40 Lymphocytes % (Manual) 9 % (13-43) L 06/29/17 03:40 Monocytes % (Manual) 5 % (4-9) 06/29/17 03:40 Eosinophils % (Manual) 3 % (0-6) 06/29/17 03:40 Nucleated RBCs 1 06/29/17 03:40 Plt Morphology Comment Normal (NORMAL) 07/01/17 05:15 RBC Morphology Normal (NORMAL) 07/01/17 05:15 Hypochromasia 1+ A 06/28/17 03:00 Sodium 139 mmol/L (136-145) 07/01/17 05:15 Corrected Sodium TNP 07/01/17 05:15 Potassium 3.4 mmol/L (3.5-5.1) L 07/01/17 05:15 Chloride 103 mmol/L (98-107) 07/01/17 05:15 Carbon Dioxide 26.6 mmol/L (21-32) 07/01/17 05:15 BUN 15 mg/dL (7-18) 07/01/17 05:15 Creatinine 0.60 mg/dL (0.55-1.02) 07/01/17 05:15 Est GFR (MDRD) Af Amer > 60 (>60) 07/01/17 05:15 Est GFR (MDRD) Non-Af > 60 (>60) 07/01/17 05:15 Glucose 109 mg/dL (65-99) H 07/01/17 05:15 Calcium 9.0 mg/dL (8.5-10.1) 07/01/17 05:15 Corrected Calcium TNP 07/01/17 05:15 Iron 29 ug/dL (50-175) L 06/30/17 05:35 Ferritin 290 ng/mL (8-252) H 06/30/17 05:35 Total Bilirubin 0.80 mg/dL (0.2-1.0) 07/01/17 05:15 AST 25 Units/L (15-37) 07/01/17 05:15 ALT 40 Units/L (12-78) 07/01/17 05:15 Alkaline Phosphatase 63 Units/L (46-116) 07/01/17 05:15 Creatine Kinase 28 Units/L (26-192) 06/24/17 09:40 Total Protein 6.5 g/dL (6.4-8.2) 07/01/17 05:15 Albumin 3.6 g/dL (3.4-5.0) 07/01/17 05:15 Globulin 2.9 g/dL (2.5-4.5) 07/01/17 05:15 Albumin/Globulin Ratio 1.2 Ratio (1.1-2.1) 07/01/17 05:15 Blood Type A POSITIVE 06/28/17 10:30 Antibody Screen Negative 06/28/17 10:30 Crossmatch See Detail 06/28/17 10:30 - Plan (1) UTI (urinary tract infection) Status: Acute Qualifiers: Urinary tract infection type: site unspecified Hematuria presence: without hematuria Qualified Code(s): N39.0 - Urinary tract infection, site not specified Plan: LEVAQUIN 500MG IV DAILY, CONTINUE TO MONITOR (2) Altered mental status Status: Acute Qualifiers: Altered mental status type: disorientation Qualified Code(s): R41.0 - Disorientation, unspecified Plan: TREAT INFECTION, CONTINUE TO MONITOR (3) Tachycardia Status: Acute Plan: HYDRATE, TELEMETRY, CONTINUE TO MONITOR (4) Swallowing difficulty Status: Acute Qualifiers: Dysphagia type: unspecified Qualified Code(s): R13.10 - Dysphagia, unspecified Plan: SWALLOWING STUDY, MECHANICAL SOFT DIET WITH NECTAR THICK LIQUIDS, SUCTION NEEDED, CONTINUE TO MONITOR (5) Hypoalbuminemia due to protein-calorie malnutrition Status: Acute Plan: PERIPHERAL TPN, ALBUMIN 25% DAILY, CONTINUE TO MONITOR (6) GERD (gastroesophageal reflux disease) Status: Acute Qualifiers: Esophagitis presence: esophagitis presence not specified Qualified Code(s) : K21.9 - Gastro-esophageal reflux disease without esophagitis Plan: PEPCID 20MG IV BID, CONTINUE TO MONITOR (7) Elevated liver enzymes Status: Acute Plan: LIVER US, CONTINUE TO MONITOR (8) Lower extremity edema Status: Acute Plan: BILATERAL VENOUS DOPPLER, CONTINUE TO MONITOR
--- NOTE | 2017-07-01 12:22 | VAS ---
HISTORY: Bilateral lower extremity pitting edema and pain Study: Doppler ultrasound of the deep veins of both lower extremities Comparison: None TECHNIQUE: Multiple govea scale and color flow Doppler images of the deep venous system were obtained of the right and left lower extremity. FINDINGS: The deep venous system of the right and left lower extremities were evaluated from the level of the c ommon femoral vein through the popliteal vein. There is no compression of lower phasic blood flow demonstrated in the deep veins of the left lower e xtremity from common femoral to popliteal vein. On the right there is compression and phasic flow and augmentation of the right common femoral vein. There is no compression or flow or augmentation in the right superficial femoral vein or popliteal ve in.. IMPRESSION: 1. Thrombosis of the deep veins of the left lower extremity 2. Thrombosis of the right superficial femoral and popliteal veins Reported By:
[2017-07-01] MEDS: MAXZIDE 75/50 MG PO SCH (12:33)
[2017-07-01] MEDS: ASPIRIN 81 MG CHEWTAB PO SCH (12:33)
[2017-07-01] MEDS: VITAMIN B-12 PO SCH (13:05)
[2017-07-01] MEDS: SYNTHROID 50 mcg TAB PO SCH (13:05)
[2017-07-01] MEDS: ZYLOPRIM PO SCH (13:05)
[2017-07-01] MEDS: REMERON PO SCH (13:05)
[2017-07-01] MEDS: VITAMIN D3 PO SCH (13:06)
[2017-07-01] MEDS ORDERED: ZOFRAN INJ 4 MG VIAL IVP PRN (13:30)
[2017-07-01] MEDS: MILK OF MAGNESIA PO SCH (21:07)
[2017-07-01] MEDS: COLACE CAP 100 MG PO SCH (21:07)
[2017-07-01] MEDS: ZOCOR TAB 40 MG PO SCH (21:08)
[2017-07-01] MEDS: SINGULAIR TAB 10 MG PO SCH (21:08)
[2017-07-01 23:51] LABS: HEPATITIS A ANTIBODY IGM Negative (Negative)
[2017-07-02] MEDS: NS + KCL 20 MEQ/L 1,000 ML IV SCH ×2 (05:00→15:28)
[2017-07-02] MEDS: LANTISEPTIC TOP PRN (05:05)
[2017-07-02] MEDS: FORTAZ or TAZICEF INJ 2 GM in NS 50 ML IV 50 ML IV SCH ×3 (05:59→21:11)
[2017-07-02] MEDS: PROCALAMINE 3 % 1,000 ML IV SCH (06:02)
[2017-07-02 06:10] LABS: HEPATITIS B CORE IGM Negative (Negative); HEPATITIS B SURFACE ANTIGEN Negative (Negative)
[2017-07-02 06:16] LABS: BASOPHILS # (AUTO) 0.1 X10^3/uL (0.0-0.1); BASOPHILS % (AUTO) 0.8 % (0.2-1.0); EOSINOPHILS # (AUTO) 0.2 x10^3/uL (0.0-0.2); EOSINOPHILS % (AUTO) 2.8 % (0.9-2.9); HEMATOCRIT 34.7 % (36.0-47.0); HEMOGLOBIN 11.6 g/dL (12.0-16.0); LYMPHOCYTES # (AUTO) 0.6 X10^3/uL (1.3-2.9); LYMPHOCYTES % (AUTO) 7.4 % (21.0-51.0); MEAN CORPUSCULAR HEMOGLOBIN 27.9 pg (27.0-34.0); MEAN CORPUSCULAR HGB CONC 33.3 g/dL (33.0-35.0); MEAN CORPUSCULAR VOLUME 83.9 fL (80.0-100.0); MEAN PLATELET VOLUME 7.7 fL (7.4-11.0); MONOCYTES # (AUTO) 0.7 x10^3/uL (0.3-0.8); MONOCYTES % (AUTO) 7.9 % (0.0-13.0); NEUTROPHILS # (AUTO) 6.7 x10^3/uL (2.2-4.8); NEUTROPHILS % (AUTO) 81.1 % (42.0-75.0); PLATELET COUNT 224 X10^3/uL (150.0-450.0); RED BLOOD COUNT 4.14 X10^6/uL (3.5-5.4); WHITE BLOOD COUNT 8.2 X10^3/uL (3.6-10.0)
[2017-07-02 06:52] LABS: ALANINE AMINOTRANSFERASE 33 Units/L (12-78); ALBUMIN 3.4 g/dL (3.4-5.0); ALKALINE PHOSPHATASE 55 Units/L (46-116); ASPARTATE AMINO TRANSFERASE 30 Units/L (15-37); BLOOD UREA NITROGEN 13 mg/dL (7-18); CALCIUM 8.6 mg/dL (8.5-10.1); CARBON DIOXIDE 25.5 mmol/L (21-32); CHLORIDE 103 mmol/L (98-107); CREATININE 0.56 mg/dL (0.55-1.02); SODIUM 138 mmol/L (136-145); TOTAL PROTEIN 6.3 g/dL (6.4-8.2); eGFR BLACK RACES > 60 (>60); eGFR NON BLACK RACES > 60 (>60)
[2017-07-02 08:50] LABS: ANTI-NUCLEAR ANTIBODY TEST None Detected (None Detected)
[2017-07-02] MEDS: ALBUMIN HUMAN 25%- 100ML 100 ML IV SCH (09:01)
[2017-07-02] MEDS: PEPCID 20 MG IV PREMIX* 20 MG/50 ML BAG IV SCH ×2 (09:01→21:11)
[2017-07-02] MEDS: LEVAQUIN PREMIX IV 500 MG 500 MG/100 ML BAG IV SCH (09:02)
[2017-07-02] MEDS: VITAMIN D3 PO SCH (09:02)
[2017-07-02] MEDS: PROTONIX INJ 40 MG VIAL IVP SCH ×2 (09:02→21:11)
[2017-07-02] MEDS: VITAMIN B-12 PO SCH (09:03)
[2017-07-02] MEDS: ZYLOPRIM PO SCH (09:03)
[2017-07-02] MEDS: ASPIRIN 81 MG CHEWTAB PO SCH (09:03)
[2017-07-02] MEDS: REMERON PO SCH (09:03)
[2017-07-02] MEDS: MAXZIDE 75/50 MG PO SCH (09:03)
[2017-07-02] MEDS: SYNTHROID 50 mcg TAB PO SCH (09:03)
[2017-07-02] MEDS: COLACE CAP 100 MG PO SCH (21:12)
[2017-07-02] MEDS: ZOCOR TAB 40 MG PO SCH (21:12)
[2017-07-02] MEDS: SINGULAIR TAB 10 MG PO SCH (21:12)
[2017-07-02] MEDS: MILK OF MAGNESIA PO SCH (21:13)
[2017-07-03] MEDS: NS + KCL 20 MEQ/L 1,000 ML IV SCH ×3 (02:25→21:26)
[2017-07-03] MEDS: FORTAZ or TAZICEF INJ 2 GM in NS 50 ML IV 50 ML IV SCH ×3 (05:59→21:26)
[2017-07-03 06:06] LABS: BASOPHILS # (AUTO) 0.1 X10^3/uL (0.0-0.1); BASOPHILS % (AUTO) 0.7 % (0.2-1.0); EOSINOPHILS # (AUTO) 0.3 x10^3/uL (0.0-0.2); EOSINOPHILS % (AUTO) 3.5 % (0.9-2.9); HEMATOCRIT 33.5 % (36.0-47.0); HEMOGLOBIN 11.2 g/dL (12.0-16.0); LYMPHOCYTES # (AUTO) 0.6 X10^3/uL (1.3-2.9); LYMPHOCYTES % (AUTO) 8.4 % (21.0-51.0); MEAN CORPUSCULAR HEMOGLOBIN 28.1 pg (27.0-34.0); MEAN CORPUSCULAR HGB CONC 33.5 g/dL (33.0-35.0); MEAN CORPUSCULAR VOLUME 83.8 fL (80.0-100.0); MEAN PLATELET VOLUME 7.7 fL (7.4-11.0); MONOCYTES # (AUTO) 0.6 x10^3/uL (0.3-0.8); MONOCYTES % (AUTO) 7.8 % (0.0-13.0); NEUTROPHILS # (AUTO) 6.1 x10^3/uL (2.2-4.8); NEUTROPHILS % (AUTO) 79.6 % (42.0-75.0); PLATELET COUNT 224 X10^3/uL (150.0-450.0); RED CELL DISTRIBUTION WIDTH 16.5 % (11.6-16.5); WHITE BLOOD COUNT 7.7 X10^3/uL (3.6-10.0)
[2017-07-03 06:13] LABS: ALANINE AMINOTRANSFERASE 30 Units/L (12-78); ALBUMIN 3.4 g/dL (3.4-5.0); ALKALINE PHOSPHATASE 50 Units/L (46-116); ASPARTATE AMINO TRANSFERASE 27 Units/L (15-37); BLOOD UREA NITROGEN 14 mg/dL (7-18); CALCIUM 8.6 mg/dL (8.5-10.1); CARBON DIOXIDE 26.6 mmol/L (21-32); CHLORIDE 104 mmol/L (98-107); COR NA(FOR HYPERGLY) 139 mmol/L (136-145); CREATININE 0.56 mg/dL (0.55-1.02); SODIUM 139 mmol/L (136-145); TOTAL PROTEIN 6.1 g/dL (6.4-8.2); eGFR BLACK RACES > 60 (>60); eGFR NON BLACK RACES > 60 (>60)
[2017-07-03] MEDS: ALBUMIN HUMAN 25%- 100ML 100 ML IV SCH (09:23)
[2017-07-03] MEDS: VITAMIN D3 PO SCH (09:23)
[2017-07-03] MEDS: MAXZIDE 75/50 MG PO SCH (09:23)
[2017-07-03] MEDS: LEVAQUIN PREMIX IV 500 MG 500 MG/100 ML BAG IV SCH (09:23)
[2017-07-03] MEDS: REMERON PO SCH (09:23)
[2017-07-03] MEDS: ASPIRIN 81 MG CHEWTAB PO SCH (09:24)
[2017-07-03] MEDS: ZYLOPRIM PO SCH (09:24)
[2017-07-03] MEDS: PEPCID 20 MG IV PREMIX* 20 MG/50 ML BAG IV SCH ×2 (09:24→20:12)
[2017-07-03] MEDS: PROTONIX INJ 40 MG VIAL IVP SCH ×2 (09:24→20:12)
[2017-07-03] MEDS: SYNTHROID 50 mcg TAB PO SCH (09:24)
[2017-07-03] MEDS: VITAMIN B-12 PO SCH (09:25)
[2017-07-03] MEDS: PROCALAMINE 3 % 1,000 ML IV SCH (14:48)
[2017-07-03] MEDS: ZOCOR TAB 40 MG PO SCH (20:12)
[2017-07-03] MEDS: MILK OF MAGNESIA PO SCH (20:12)
[2017-07-03] MEDS: COLACE CAP 100 MG PO SCH (20:12)
[2017-07-03] MEDS: SINGULAIR TAB 10 MG PO SCH (20:12)
[2017-07-04] MEDS: NS + KCL 20 MEQ/L 1,000 ML IV SCH ×2 (03:50→17:24)
[2017-07-04] MEDS: FORTAZ or TAZICEF INJ 2 GM in NS 50 ML IV 50 ML IV SCH ×3 (05:39→21:42)
[2017-07-04 06:03] LABS: BASOPHILS # (AUTO) 0.1 X10^3/uL (0.0-0.1); BASOPHILS % (AUTO) 0.7 % (0.2-1.0); EOSINOPHILS # (AUTO) 0.3 x10^3/uL (0.0-0.2); EOSINOPHILS % (AUTO) 3.2 % (0.9-2.9); HEMATOCRIT 34.3 % (36.0-47.0); HEMOGLOBIN 11.5 g/dL (12.0-16.0); LYMPHOCYTES # (AUTO) 0.6 X10^3/uL (1.3-2.9); LYMPHOCYTES % (AUTO) 7.3 % (21.0-51.0); MEAN CORPUSCULAR HGB CONC 33.4 g/dL (33.0-35.0); MEAN PLATELET VOLUME 7.7 fL (7.4-11.0); MONOCYTES # (AUTO) 0.7 x10^3/uL (0.3-0.8); MONOCYTES % (AUTO) 8.5 % (0.0-13.0); NEUTROPHILS # (AUTO) 6.7 x10^3/uL (2.2-4.8); NEUTROPHILS % (AUTO) 80.3 % (42.0-75.0); PLATELET COUNT 222 X10^3/uL (150.0-450.0); RED BLOOD COUNT 4.09 X10^6/uL (3.5-5.4); RED CELL DISTRIBUTION WIDTH 16.6 % (11.6-16.5); WHITE BLOOD COUNT 8.3 X10^3/uL (3.6-10.0)
[2017-07-04 06:21] LABS: ALANINE AMINOTRANSFERASE 29 Units/L (12-78); ALBUMIN 3.5 g/dL (3.4-5.0); ALKALINE PHOSPHATASE 51 Units/L (46-116); ASPARTATE AMINO TRANSFERASE 33 Units/L (15-37); BLOOD UREA NITROGEN 14 mg/dL (7-18); CALCIUM 8.8 mg/dL (8.5-10.1); CARBON DIOXIDE 25.9 mmol/L (21-32); CHLORIDE 104 mmol/L (98-107); COR NA(FOR HYPERGLY) 138 mmol/L (136-145); CREATININE 0.61 mg/dL (0.55-1.02); SODIUM 138 mmol/L (136-145); TOTAL PROTEIN 6.3 g/dL (6.4-8.2); eGFR BLACK RACES > 60 (>60); eGFR NON BLACK RACES > 60 (>60)
--- NOTE | 2017-07-04 08:38 | RAD ---
HISTORY: Possible aspiration Study: Single view of the chest. Comparison: 06/30/2017 Findings: The cardiomediastinal silhouette is normal. No focal consolidations, pleural effusions or pneumothora x. Osseous structures demonstrate no acute abnormality. Trace atelectasis at the left lung base. IMPRESSION: 1. No acute cardiopulmonary process. Reported By:
[2017-07-04] MEDS: ALBUMIN HUMAN 25%- 100ML 100 ML IV SCH (08:54)
[2017-07-04] MEDS: PEPCID 20 MG IV PREMIX* 20 MG/50 ML BAG IV SCH ×2 (08:54→21:36)
[2017-07-04] MEDS: LEVAQUIN PREMIX IV 500 MG 500 MG/100 ML BAG IV SCH (08:56)
[2017-07-04] MEDS: ZYLOPRIM PO SCH (08:57)
[2017-07-04] MEDS: REMERON PO SCH (08:57)
[2017-07-04] MEDS: PROTONIX INJ 40 MG VIAL IVP SCH ×2 (08:57→21:36)
[2017-07-04] MEDS: MAXZIDE 75/50 MG PO SCH (08:57)
[2017-07-04] MEDS: ASPIRIN 81 MG CHEWTAB PO SCH (08:58)
[2017-07-04] MEDS: SYNTHROID 50 mcg TAB PO SCH (08:58)
[2017-07-04] MEDS: VITAMIN B-12 PO SCH (08:59)
[2017-07-04] MEDS: VITAMIN D3 PO SCH (10:01)
[2017-07-04] MEDS ORDERED: NS 100 ML IV + SPIKE MINIBAG* 0 ML IV ONE (13:18)
[2017-07-04] MEDS ORDERED: NS 50 ML IV + SPIKE MINIBAG* 50 ML IV ONE (13:19)
[2017-07-04] MEDS: PROCALAMINE 3 % 1,000 ML IV SCH (17:26)
[2017-07-04] MEDS ORDERED: NS 100 ML IV + SPIKE MINIBAG* 100 ML IV ONE (18:54)
--- NOTE | 2017-07-04 19:54 | CT ---
HISTORY: Shortness of breath Study: CTA chest with contrast Comparison: None Technique: Multiple axial images of the chest were obtained from the thoracic inlet to the upper abdo men after the administration of IV contrast. Coronal and sagittal 3D MIP reconstructions were perform ed. Automated dose control was utilized. Findings: The thyroid gland is unremarkable. There is an aberrant right subclavian artery and there is moderate plaque throughout the aorta which is mildly dilated throughout with no aneurysm or dissection. The p ulmonary arteries are well opacified with no filling defect or vessel cut off. There are hazy subsegm ental opacities along the lung bases posteriorly and along the lingula inferiorly with a small calcif ied granuloma along the left upper lobe. There is a a left Port-A-Cath in place with the tip in the d istal superior vena cava. The liver is normal size with several small 5-6 mm hypodensities scattered in the right lobe which are ill-defined . There is a 6 mm nodule in the left adrenal gland. The right adrenal is normal. There is a gastrostomy feeding tube along the distal body of the stomach which ap pears in good position. There is an IVC filter in place which is only partially visualized and extend s just below the renal vein. There is a moderate compression fracture at T9 with no displaced or retr opulsed fragment IMPRESSION: No evidence of a pulmonary embolus. Moderate atherosclerotic aorta which is mildly dilated throughout with no aneurysm or dissection. Mild bibasilar atelectasis or early infiltrates posteriorly and laterally in the lingula. Left Port-A-Cath in good position . Questionable 6 mm left adrenal nodule. Gastrostomy Several 5-6 mm hypodensities scattered in the liver which could represent cysts but are otherwise too small to characterize. Mild compression fracture of T9 which appears chronic but is otherwise of indeterminate age. Reported By:
[2017-07-04] MEDS: COLACE CAP 100 MG PO SCH (21:36)
[2017-07-04] MEDS: ZOCOR TAB 40 MG PO SCH (21:36)
[2017-07-04] MEDS: SINGULAIR TAB 10 MG PO SCH (21:36)
[2017-07-04] MEDS: MILK OF MAGNESIA PO SCH (21:36)
[2017-07-05 05:39] LABS: BASOPHILS # (AUTO) 0.1 X10^3/uL (0.0-0.1); EOSINOPHILS # (AUTO) 0.4 x10^3/uL (0.0-0.2); EOSINOPHILS % (AUTO) 4.6 % (0.9-2.9); HEMOGLOBIN 11.6 g/dL (12.0-16.0); MEAN CORPUSCULAR HEMOGLOBIN 27.9 pg (27.0-34.0); MEAN CORPUSCULAR HGB CONC 33.1 g/dL (33.0-35.0); MEAN CORPUSCULAR VOLUME 84.2 fL (80.0-100.0); MEAN PLATELET VOLUME 7.6 fL (7.4-11.0); MONOCYTES # (AUTO) 0.7 x10^3/uL (0.3-0.8); NEUTROPHILS % (AUTO) 73.4 % (42.0-75.0); PLATELET COUNT 208 X10^3/uL (150.0-450.0); RED BLOOD COUNT 4.15 X10^6/uL (3.5-5.4); RED CELL DISTRIBUTION WIDTH 16.6 % (11.6-16.5); WHITE BLOOD COUNT 8.2 X10^3/uL (3.6-10.0)
[2017-07-05 05:52] LABS: ALANINE AMINOTRANSFERASE 25 Units/L (12-78); ALBUMIN 3.7 g/dL (3.4-5.0); ALKALINE PHOSPHATASE 52 Units/L (46-116); ASPARTATE AMINO TRANSFERASE 22 Units/L (15-37); BLOOD UREA NITROGEN 12 mg/dL (7-18); CALCIUM 9.3 mg/dL (8.5-10.1); CARBON DIOXIDE 25.1 mmol/L (21-32); CHLORIDE 105 mmol/L (98-107); CREATININE 0.58 mg/dL (0.55-1.02); SODIUM 139 mmol/L (136-145); TOTAL PROTEIN 6.5 g/dL (6.4-8.2); eGFR BLACK RACES > 60 (>60); eGFR NON BLACK RACES > 60 (>60)
[2017-07-05] MEDS: FORTAZ or TAZICEF INJ 2 GM in NS 50 ML IV 50 ML IV SCH (06:01)
[2017-07-05] MEDS: NS + KCL 20 MEQ/L 1,000 ML IV SCH ×2 (06:01→08:19)
[2017-07-05] MEDS: ALBUMIN HUMAN 25%- 100ML 100 ML IV SCH (08:19)
[2017-07-05] MEDS: PROTONIX INJ 40 MG VIAL IVP SCH (08:21)
[2017-07-05] MEDS: ASPIRIN 81 MG CHEWTAB PO SCH (08:21)
[2017-07-05] MEDS: ZYLOPRIM PO SCH (08:21)
[2017-07-05] MEDS: VITAMIN B-12 PO SCH (08:22)
[2017-07-05] MEDS: SYNTHROID 50 mcg TAB PO SCH (08:22)
[2017-07-05] MEDS: VITAMIN D3 PO SCH (08:28)
[2017-07-05] MEDS: REMERON PO SCH (08:29)
[2017-07-05] MEDS: MAXZIDE 75/50 MG PO SCH (08:29)
[2017-07-05] MEDS: PEPCID 20 MG IV PREMIX* 20 MG/50 ML BAG IV SCH (09:05)
[2017-07-05] MEDS ORDERED: ELIQUIS PO SCH (09:30)
[2017-07-05] MEDS: LEVAQUIN PREMIX IV 500 MG 500 MG/100 ML BAG IV SCH (09:50)
[2017-07-05 10:12] VITALS: BP 170/81
== END 2017-07-05 11:30 | DRG 690 ==
LOC: ICU 15:22
PROVIDERS: ADMIT Internal Medicine; ATTEND Internal Medicine
PROC: 30233N1 Transfusion of Nonautologous Red Blood Cells into Peripheral Vein, Percutaneous Approach (ICD-10-PCS; 2017-06-28)
PROC: 30233N1 Transfusion of Nonautologous Red Blood Cells into Peripheral Vein, Percutaneous Approach (ICD-10-PCS; 2017-06-28)
PROC: B517ZZA Fluoroscopy of Left Subclavian Vein, Guidance (ICD-10-PCS; 2017-06-30)
PROC: 05H633Z Insertion of Infusion Device into Left Subclavian Vein, Percutaneous Approach (ICD-10-PCS; principal; 2017-06-30 13:00)
PROC: 0DH63UZ Insertion of Feeding Device into Stomach, Percutaneous Approach (ICD-10-PCS; 2017-07-01)
DX: N39.0 Urinary tract infection, site not specified (principal); I82.432 Acute embolism and thrombosis of left popliteal vein; I82.412 Acute embolism and thrombosis of left femoral vein; R41.0 Disorientation, unspecified; R00.0 Tachycardia, unspecified; B96.1 Klebsiella pneumoniae [K. pneumoniae] as the cause of diseases classified elsewhere; B95.2 Enterococcus as the cause of diseases classified elsewhere; I25.10 Atherosclerotic heart disease of native coronary artery without angina pectoris; I69.098 Other sequelae following nontraumatic subarachnoid hemorrhage; E78.2 Mixed hyperlipidemia; K21.9 Gastro-esophageal reflux disease without esophagitis; I10 Essential (primary) hypertension; E03.8 Other specified hypothyroidism; R13.11 Dysphagia, oral phase; R94.5 Abnormal results of liver function studies; L89.311 Pressure ulcer of right buttock, stage 1; R26.89 Other abnormalities of gait and mobility; I87.8 Other specified disorders of veins; K25.9 Gastric ulcer, unspecified as acute or chronic, without hemorrhage or perforation; K20.8 Other esophagitis
CPT/HCPCS: 36415; 36430; 70450; 71010; 71275; 74000; 76000; 76705; 80053; 80074; 82103; 82550; 82728; 83540; 84075; 84132; 84450; 84460; 85025; 86256; 86308; 86850; 86900; 86901; 86922; 87040; 92523; 93005; 93306; 93970; 97535; 99100; 99231; A4216; A4222; B5200; C9113; P9016; P9047; S0020; S0028; A4217; J0690; J0713; J1200; J1940; J1956; J2001; J2250; J2405; J3010; J3480; J3490